=== PATIENT | male | born 1955 | race African-American/Black ===

== ENCOUNTER 2016-07-19 07:00 | Inpatient (IN) ==
[2016-07-20] MEDS ORDERED: LACTULOSE 20 GM/30 ML UDCUP PO PRN (08:09)
[2016-07-20] MEDS ORDERED: TEMAZEPAM 7.5 MG CAPSULE PO PRN (08:09)
[2016-07-20] MEDS ORDERED: guaiFENesin 200 MG/10 ML UDCUP PO PRN (08:09)
[2016-07-20] MEDS ORDERED: PROMETHAZINE 25 MG TABLET PO PRN (08:09)
[2016-07-20] MEDS ORDERED: MAGNESIUM HYDROXIDE SUSP 30 ML UDCUP PO PRN (08:09)
[2016-07-20] MEDS ORDERED: LOPERAMIDE 2 MG CAPSULE PO PRN ×2 (08:09)
[2016-07-20] MEDS ORDERED: traMADol 50 MG TABLET PO PRN (08:09)
[2016-07-20] MEDS ORDERED: diphenhydrAMINE CAP 25 MG CAPSULE PO PRN (08:09)
[2016-07-20] MEDS ORDERED: chlorproMAZINE 25 MG/1 ML AMP IV PRN (08:09)
[2016-07-20] MEDS ORDERED: ACETAMINOPHEN 325 MG TABLET PO PRN (08:09)
[2016-07-20] MEDS ORDERED: ALUMINUM/MAGNES/SIMETH MAX STR 30 ML UDCUP PO PRN (08:09)
[2016-07-20] MEDS ORDERED: BENZTROPINE 2 MG/2 ML AMP IV PRN (08:09)
[2016-07-20] MEDS ORDERED: ALPRAZolam 0.25 MG TABLET PO PRN (08:09)
[2016-07-20] MEDS ORDERED: MYLANTA/LIDO VISC 2:1 300 ML BOTTLE SWISH/SWAL PRN ×2 (08:09)
--- NOTE | 2016-07-20 08:20 | Oncology Progress Note ---
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 This was a T4 N2 M1 esophageal cancer with extensive mediastinal involvement and liver invasion. He has had one course of chemotherapy using cis-[place] 120 mg IV day 1 followed by 5-FU 1200 mg IV days 1 through 4. This was started June 21. The patient had a PEG tube placed because of severe and total inability to swallow. He is swallowing some liquids now but still is unable to swallow semi- solids or thick liquids much less solid food. When I saw him in my office I calculated his body surface area to be 1.58 m. He is having pain that radiates to the left side of his back in the lower thoracic and upper lumbar area that I suspect is related to his invasive cancer. ROS Gen.: Positive for decreased appetite, chills, decreased activity, generalized weakness, irritability and weight loss. Eyes: No history of chronic disease, infections or visual loss. ENT: Positive for dysphagia, lump in throat, sinusitis and taste change. No history of chronic infections, epistaxis, chronic sore throat Lungs: No history of asthma, emphysema, hemoptysis, chronic pleurisy or long- term or chronic infections Cardiovascular: He has chest pain but it is of noncardiac nature. No history of angina, coronary artery disease, congestive heart failure, cardiovascular surgery or DVT/VTE GI: Positive for abdominal pain, bloating, change in appetite, change in bowel habits, constipation, decreased appetite, dysphagia, heartburn, nausea, odynophagia and reflux and also for regurgitation of food. No history of lower GI bleeding, melena, gallbladder disease or pancreatic disease. : Positive for icteric urine and back pain. No history of kidney stones, chronic kidney infections or hematuria. Musculoskeletal: Positive for back pain, bone and joint aches and pains, muscle weakness and neck stiffness. Negative for rheumatologic disease Neurologic: Positive for headaches and loss of consciousness. No history of seizures, convulsions or paralysis. Psychiatric: No history of chronic psychiatric illness or psychiatric medications. Lymphatic: No history of significant or long-term lymphadenopathy Hematologic: No history of anemia, bleeding disorders or blood dyscrasias, bleeding diathesis or long-term elevation or depression white cell count or petechiae. Skin: No history of chronic skin infections or rashes or significant skin lesions. Physical examination: General: The patient is chronically ill-appearing, emaciated and cachectic. Eyes: Lids and conjunctivae are normal. ENT: His teeth are in poor repair and many are missing. His oral mucosa and pharynx are normal. His hearing is normal. His trachea is midline and he has no neck masses. Lungs: Breath sounds are slightly coarse throughout without rubs, rales or rhonchi. His chest moves symmetrically with respiration. Cardiovascular: His heart rhythm is regular without murmur, gallop or rub. There is no jugular venous distention, clubbing, cyanosis or edema. Abdomen: He has a PEG tube in place. There is no ascites and I palpate no definite masses but he is modestly tender throughout the abdomen. Musculoskeletal: He has no focal muscle atrophy or bone or joint deformity but he has generalized muscle wasting and is weak. Neurologic: Cranial nerves II through XII are intact. There are no focal neurologic deficits. Nodes: There is no submandibular, cervical, supraclavicular or axillary adenopathy. Skin: Skin turgor is poor. I see no obvious masses or lesions. Impression: The patient is admitted for institution of course #2 of chemotherapy and for monitoring for toxicity. 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 Specialty Discharge - Follow Up or Referrals - Discharge Medications No Action Omeprazole [Prilosec] 20 mg PO DAILY Naproxen Sodium [Aleve] 220 mg PO QOTHER DAY PRN PRN Reason: Pain
[2016-07-20] MEDS ORDERED: DEXAMETHASONE 10 MG/1 ML VIAL IV SCH (09:00)
[2016-07-20] MEDS ORDERED: NAPROXEN 250 MG TABLET PO PRN (09:11)
--- NOTE | 2016-07-20 09:18 | XRay Report ---
XR chest 2V Indication: Esophageal cancer Comparison: 14 June 2016 Findings: The heart and mediastinum are normal in size and configuration. The pulmonary vascularity is normal in caliber. No lung infiltrates, effusions, pneumothorax or other abnormality is demonstrated. Impression: No acute cardiopulmonary disease. PROCEDURE INTERPRETED AT [facility] DEPARTMENT OF RADIOLOGY Final Report Signed by: Dr. Fausto Harmon
[2016-07-20 09:21] LABS: Basophils % 0.1 % (0.0-0.8); Eosinophils % 0.5 % (0.00-10.9); Hematocrit 24.7 VOL% (42.0-52.0); Hemoglobin 8.3 GM/DL (14.0-18.0); Immature Granulocytes % 0.5 %; Immature Granulocytes Absolute 0.04 #; Lymphocytes # 1.6 10*3/uL (1.4-4.0); Lymphocytes % 21.4 % (21.2-54.2); Mean Corpuscular HGB Conc 33.6 GM/DL (32-36); Mean Corpuscular Hemoglobin 30 PG (27-34); Mean Corpuscular Volume 87.9 FL (87-102); Mean Platelet Volume 9.2 FL (9.6-12.0); Monocytes # 0.5 10*3/uL (0.11-0.8); Neutrophils # 5.3 10*3/uL (1.4-7.4); Neutrophils % 70.5 % (38.7-73.9); Platelet Count 236 10*3/uL (130-400); Red Blood Count 2.81 10*6/uL (3.8-5.5); Red Cell Distribution Width 13.3 % (9.3-17.3); White Blood Count 7.5 10*3/uL (4.5-13.71)
[2016-07-20] MEDS ORDERED: PANTOPRAZOLE 40 MG TABLET PO SCH (09:30)
[2016-07-20 09:49] LABS: Alanine Aminotransferase < 9 U/L (16-61); Albumin 3.3 G/DL (3.4-5.0); Alkaline Phosphatase 77 U/L (45-117); Aspartate Amino Transferase 9 U/L (0-37); Blood Urea Nitrogen 21 MG/DL (7-18); Calcium 9.5 MG/DL (8.5-10.1); Glucose 86 MG/DL (74-106); Osmolality,Calculated 274.8 MOS/KG (273-304); Potassium 4.6 MMOL/L (3.5-5.1); Sodium 137 MMOL/L (136-145); Total Protein 7.2 G/DL (6.4-8.3)
[2016-07-20] MEDS ORDERED: DOCETAXEL IV ONE ×2 (10:00→17:00)
[2016-07-20] MEDS ORDERED: SODIUM CHLORIDE 0.9% IV ONE ×4 (10:00→17:00)
[2016-07-20] MEDS ORDERED: CISPLATIN IV ONE ×2 (11:00→17:00)
[2016-07-20 11:35] LABS: Cancer Antigen 19-9 46.8 U/ML (0-37); Carcinoembryonic Antigen 3.9 NG/ML (0.0-5.0)
[2016-07-20] MEDS: FLUOROURACIL 1,500 MG in SODIUM CHLORIDE 0.9% 1,000 ML IV SCH (11:36)
[2016-07-20] MEDS: GRANISETRON 1 MG/1 ML VIAL IV SCH (11:36)
--- NOTE | 2016-07-20 13:30 | Event Note ---
Archie De La O has been requested for stage IV esophageal cancer. I discussed the procedure and risks in detail and offered to do the procedure today. I discussed the risks including infection bleeding blood clots, pneumothorax, etc. He understands these risks and is not willing to consent to a Mediport at this time. He wants to think about it for a while. If he changes his mind about surgery with him and put him on the schedule for in the morning
[2016-07-21] MEDS ORDERED: PANTOPRAZOLE 40 MG TABLET PO ONE (06:00)
[2016-07-21 06:26] LABS: Calcium 8.5 MG/DL (8.5-10.1); Magnesium 1.6 MG/DL (1.8-2.4); Osmolality,Calculated 272.1 MOS/KG (273-304); Potassium 4.8 MMOL/L (3.5-5.1); Prealbumin 19.3 MG/DL (20-40)
--- NOTE | 2016-07-21 08:02 | Oncology Progress Note ---
Oncology Subjective PN Interval history: Mr. 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 We are monitoring for toxicity. He has evidently had at least a slight response to chemotherapy initially. His inability to swallow has improved slightly. I added Taxotere to his chemotherapy regimen which already included 5-FU and cis-[place]. The dose of the [place] was 120 mg and it was given July 20. The dose of Taxotere was 100 mg and it was given July 20. The patient still on 5-FU by continuous 24-hour infusion and I am considering a reduction in the dose to 72 hours total because a more prolonged infusion may add to the toxicity. He is anemic. I will consider transfusing him before discharge. He is having a Mediport catheter placed today. He tells me that he is having no increase in nausea or vomiting. He does have regurgitation of certain food products but it is because he has esophageal narrowing. He continues to tolerate chemotherapy well. I am going to check a CBC again tomorrow and possibly transfuse. Exam - Constitutional Vitals: Period Temp Pulse Resp BP Sys/[place] Pulse Ox Last 24 Hr 97.0 F-97.9 F 78-97 16-20 96-118/44-64 97-100 Results - Labs CBC & BMP: 07/20/16 09:00 07/21/16 05:32 Specialty Discharge - Follow Up or Referrals - Discharge Medications No Action Omeprazole [Prilosec] 20 mg PO DAILY Naproxen Sodium [Aleve] 220 mg PO QOTHER DAY PRN PRN Reason: Pain HYDROcodone/ACETAMIN 10-325 [[place] 10-325] 10 mg PO Q6HR PRN PRN Reason: Pain Promethazine Tab [Phenergan Tab] 25 mg PO Q6H PRN PRN Reason: Nausea
[2016-07-21] MEDS ORDERED: PANTOPRAZOLE 20 MG TABLET PO SCH (09:00)
[2016-07-21] MEDS: GRANISETRON 1 MG/1 ML VIAL IV SCH (09:38)
[2016-07-21] MEDS ORDERED: HEPARIN 5,000 UNIT/1 ML VIAL ONE (09:40)
[2016-07-21] MEDS ORDERED: LIDOCAINE 1%/EPI INJ 20 ML VIAL ONE (09:40)
[2016-07-21] MEDS ORDERED: BUPIVACAINE MPF 0.25% /EPI 30 ML VIAL ONE (09:40)
[2016-07-21] MEDS ORDERED: ONDANSETRON 4 MG/2 ML VIAL ONE (10:00)
[2016-07-21] MEDS ORDERED: PHENYLEPHRINE 1 MG/10 ML SYRINGE IV ONE (10:00)
[2016-07-21] MEDS ORDERED: LIDOCAINE 1% 5 ML VIAL ONE (10:00)
[2016-07-21] MEDS ORDERED: PROPOFOL 200 MG/20 ML VIAL IV ONE (10:00)
[2016-07-21] MEDS ORDERED: TISSUE ADHESIVE 1 EACH APPLICATOR TOP ONE (11:00)
--- NOTE | 2016-07-21 11:08 | Operative Note ---
Date of procedure: 07/21/16 Pre-op diagnosis: esophageal cancer Post-op diagnosis: same Procedure: PowerPort placement right subclavian vein under fluoroscopic guidance using cutdown technique Findings and technique: After informed consent was obtained the patient was brought the operating room and placed in spine position. After IV sedation was administered the patient's neck and chest was prepped and draped in usual sterile fashion. Local anesthesia was infiltrated and a transverse incision made beneath the right clavicle over the deltopectoral groove. Sharp dissection was carried down into the deltopectoral groove where multiple vein branches were identified and the largest of these was encircled with silk tie and a small transverse venotomy made. The catheter was directly introduced and advanced into the central venous circulation under fluoroscopy and positioned with the tip in the mid distal superior vena cava under fluoroscopy. The catheter was attached to the PowerPort and secured in place with Vicryl suture and easily accessed aspirated and flushed. Fluoroscopy was once again used to check good positioning. Incision was closed with a deep layer of interrupted 3- 0 Vicryl subcutaneous suture and skin with running 4 Vicryl subcutaneous suture and sure close tissue adhesive. Anesthesia: MAC, local Surgeon / Physician: Samuel Tam III. Estimated blood loss: none Specimens: none sent Condition: stable Disposition: PACU Results - Labs CBC & BMP: 07/20/16 09:00 07/21/16 05:32 Discharge Plan - Discharge Medications No Action Omeprazole [Prilosec] 20 mg PO DAILY Naproxen Sodium [Aleve] 220 mg PO QOTHER DAY PRN PRN Reason: Pain HYDROcodone/ACETAMIN 10-325 [[place] 10-325] 10 mg PO Q6HR PRN PRN Reason: Pain Promethazine Tab [Phenergan Tab] 25 mg PO Q6H PRN PRN Reason: Nausea - Follow Up or Referral - Forms/Instructions
[2016-07-21] MEDS ORDERED: LACTATED RINGERS 1,000 ML IV ONE (11:14)
[2016-07-21] MEDS ORDERED: fentaNYL 100 MCG/2 ML VIAL ONE (11:14)
[2016-07-21] MEDS ORDERED: MIDAZOLAM 2 MG/2 ML VIAL ONE (11:14)
--- NOTE | 2016-07-21 12:18 | Anesthesia ---
Anesthesia Post OP - Post Ansesthetic Evaluation Patient seen in post op: Yes Resp: within normal limits CV: within normal limits Mental: within normal limits Temp: within normal limits Bnow-Qs-Noqbulaej: within normal limits Nausea and Vomiting: within normal limits Pain: within normal limits
[2016-07-21] MEDS: ONDANSETRON 4 MG/2 ML VIAL IV PRN (19:30)
[2016-07-21] MEDS: FLUOROURACIL 1,500 MG in SODIUM CHLORIDE 0.9% 1,000 ML IV SCH (22:47)
[2016-07-22 00:25] LABS: Apearance,Urine CLEAR (Clear); Bilirubin,Urine Negative (Negative); Blood, Urine Negative (Negative); Glucose,Urine (UA) Negative (Negative); Ketones,Urine Negative (Negative); Nitrite,Urine Negative (Negative); Protein,Urine Negative; RBC,Urine 2 /HPF (0-4); Squamous Epithelial Cell,Urine Occasional /HPF (0-10); Urine Color Yellow (Yellow); Urine Specific Gravity 1.016 (1.001-1.035); WBC,Urine 1 /HPF (0-6)
[2016-07-22 05:32] LABS: Basophils % 0.1 % (0.0-0.8); Eosinophils % 0.1 % (0.00-10.9); Hematocrit 23.8 VOL% (42.0-52.0); Hemoglobin 8.2 GM/DL (14.0-18.0); Immature Granulocytes % 0.4 %; Immature Granulocytes Absolute 0.03 #; Lymphocytes # 0.7 10*3/uL (1.4-4.0); Lymphocytes % 9.7 % (21.2-54.2); Mean Corpuscular HGB Conc 34.5 GM/DL (32-36); Mean Corpuscular Hemoglobin 30 PG (27-34); Mean Corpuscular Volume 86.9 FL (87-102); Mean Platelet Volume 9.8 FL (9.6-12.0); Monocytes # 0.2 10*3/uL (0.11-0.8); Monocytes % 3.3 % (1.7-12.7); Neutrophils # 6.3 10*3/uL (1.4-7.4); Neutrophils % 86.4 % (38.7-73.9); Platelet Count 219 10*3/uL (130-400); Red Blood Count 2.74 10*6/uL (3.8-5.5); Red Cell Distribution Width 13.2 % (9.3-17.3); White Blood Count 7.3 10*3/uL (4.5-13.71)
[2016-07-22 06:09] LABS: Albumin 2.3 G/DL (3.4-5.0); Bilirubin,Total 0.5 MG/DL (0.2-1.0); Calcium 8.1 MG/DL (8.5-10.1)
[2016-07-22 06:10] LABS: Osmolality,Calculated 276.5 MOS/KG (273-304); Potassium 4.2 MMOL/L (3.5-5.1)
[2016-07-22] MEDS ORDERED: SODIUM CHLORIDE 0.9% 250 ML IV PRN (08:43)
--- NOTE | 2016-07-22 08:43 | Oncology Progress Note ---
Oncology Subjective PN Interval history: Mr. Cowan will begin day #3 of a 72 hour infusion of 5-fluorouracil today. He has squamous cell carcinoma of the esophagus and he has already received [place] and Taxotere earlier during the stay. He still tolerating chemotherapy well. He has had no nausea or vomiting. He has had no fever or chills. He has had no mouth or throat pain. His dysphagia is improving. His oral mucosa is normal. He is oriented 3. He is emaciated and cachectic but in no acute distress. His respirations are normal. Cranial nerves II through XII are intact. He has no focal neurologic deficits. We will continue chemotherapy and anticipate discharge tomorrow after blood transfusion. Exam - Constitutional Vitals: Period Temp Pulse Resp BP Sys/[place] Pulse Ox Last 24 Hr 97.1 F-98.7 F 61-100 12-20 96-144/54-79 94-100 Results - Labs CBC & BMP: 07/22/16 04:00 07/22/16 04:00 Quality Measures - VTE Contraindication to Pharmacological VTE Prophylaxis: High Risk of Bleeding Specialty Discharge - Follow Up or Referrals - Discharge Medications No Action Omeprazole [Prilosec] 20 mg PO DAILY Naproxen Sodium [Aleve] 220 mg PO QOTHER DAY PRN PRN Reason: Pain HYDROcodone/ACETAMIN 10-325 [[place] 10-325] 10 mg PO Q6HR PRN PRN Reason: Pain Promethazine Tab [Phenergan Tab] 25 mg PO Q6H PRN PRN Reason: Nausea
[2016-07-22] MEDS: GRANISETRON 1 MG/1 ML VIAL IV SCH (08:56)
[2016-07-22] MEDS: PANTOPRAZOLE 40 MG TABLET PO SCH (08:59)
[2016-07-22] MEDS: ONDANSETRON 4 MG/2 ML VIAL IV PRN (17:13)
[2016-07-22] MEDS: FLUOROURACIL 1,500 MG in SODIUM CHLORIDE 0.9% 1,000 ML IV SCH (21:17)
[2016-07-23] MEDS: GRANISETRON 1 MG/1 ML VIAL IV SCH (08:56)
[2016-07-23] MEDS: PANTOPRAZOLE 40 MG TABLET PO SCH (08:56)
--- NOTE | 2016-07-23 11:38 | Oncology Progress Note ---
Oncology Subjective PN Interval history: Mr. Cowan has esophageal cancer. I have decided to reduce the length of his 5 -FU infusion to 3 days. This means he will be completing it late tonight. We will transfuse 2 units of packed red cells because of anemia tonight. I will plan on discharging him tomorrow. His dysphagia is gradually improving. He has no mouth or throat irritation or soreness. He is fully oriented and alert. He is in no acute distress. His lungs are clear and his heart sounds are normal. Cranial nerves II through XII are intact. We are continuing chemotherapy and monitoring for toxicity. We will also transfusing packed red cells for anemia related to the esophageal cancer. Exam - Constitutional Vitals: Period Temp Pulse Resp BP Sys/[place] Pulse Ox Last 24 Hr 97.2 F-98.2 F 63-85 18-20 104-133/61-77 98-100 Results - Labs CBC & BMP: 07/22/16 04:00 07/22/16 04:00 Quality Measures - VTE Contraindication to Pharmacological VTE Prophylaxis: High Risk of Bleeding Specialty Discharge - Follow Up or Referrals - Discharge Medications No Action Omeprazole [Prilosec] 20 mg PO DAILY Naproxen Sodium [Aleve] 220 mg PO QOTHER DAY PRN PRN Reason: Pain HYDROcodone/ACETAMIN 10-325 [[place] 10-325] 10 mg PO Q6HR PRN PRN Reason: Pain Promethazine Tab [Phenergan Tab] 25 mg PO Q6H PRN PRN Reason: Nausea
[2016-07-23] MEDS: ONDANSETRON 4 MG/2 ML VIAL IV PRN (21:24)
[2016-07-24] MEDS: GRANISETRON 1 MG/1 ML VIAL IV SCH (10:01)
[2016-07-24] MEDS: PANTOPRAZOLE 40 MG TABLET PO SCH (10:01)
[2016-07-24 12:07] LABS: Eosinophils % 0.3 % (0.00-10.9); Hematocrit 30.2 VOL% (42.0-52.0)
[2016-07-24 12:12] LABS: Basophils % 0.2 % (0.0-0.8); Immature Granulocytes % 0.7 %; Immature Granulocytes Absolute 0.07 #; Lymphocytes # 0.6 10*3/uL (1.4-4.0); Lymphocytes % 5.2 % (21.2-54.2); Mean Corpuscular HGB Conc 34.1 GM/DL (32-36); Mean Corpuscular Hemoglobin 29 PG (27-34); Mean Corpuscular Volume 85.6 FL (87-102); Mean Platelet Volume 9.1 FL (9.6-12.0); Monocytes # 0.1 10*3/uL (0.11-0.8); Monocytes % 0.6 % (1.7-12.7); Platelet Count 230 10*3/uL (130-400); Red Cell Distribution Width 13.7 % (9.3-17.3)
[2016-07-24 12:14] LABS: Red Blood Count 3.53 10*6/uL (3.8-5.5); White Blood Count 10.8 10*3/uL (4.5-13.71)
[2016-07-24 12:15] LABS: Hemoglobin 10.3 GM/DL (14.0-18.0)
[2016-07-24 12:31] LABS: Lymphocytes 2 % (20-55); Segmented Neutrophils 97 % (50-85); Total Cells Counted 100
[2016-07-24 12:32] LABS: Hypochromasia 1+; Microcytosis Slight; Platelet Estimate Adequate
--- NOTE | 2016-07-24 13:03 | Discharge Summary ---
Hospital Course - Hospital Course Hospital Course: Diagnoses: Administration of chemotherapy and monitoring for toxicity Metastatic squamous cell carcinoma of the esophagus with liver metastasis Anemia of chronic disease requiring blood transfusion Malnutrition with emaciation Summary: This 60-year-old man was admitted for his second course of palliative chemotherapy for metastatic squamous cell carcinoma of the esophagus. He was emaciated and malnourished on admission. He has been having PEG tube feedings and tolerating them only fairly well. However, his dysphagia is improving and I am hoping that with the second course of chemotherapy there will be further improvement and this will result in any improvement in his nutritional status. On this admission his hemoglobin was low. It was 8.3 and we eventually transfused packed red cells while he was here. He also received chemotherapy that consisted of: cis-[place] was 120 mg and it was given July 20. Taxotere was 100 mg and it was given July 20. 5-fluorouracil 1500 mg IV over 24 hours daily for 3 days. This was a day shorter than his last previous chemotherapy but I have added the Taxotere. He was transfused with 2 units of packed red cells during his hospital stay as well. He actually tolerated the chemotherapy surprisingly well without nausea, vomiting, stomatitis or diarrhea. He will be discharged today and scheduled for readmission for August 15, 2015. My plan is to continue his current home medications. I will check a CBC, CMP and LDH on the patient on the day of admission and actually get it prior to admitting the patient and then I will make a decision about course #3 of chemotherapy. - Time spent with patient Time with patient DS: Greater than 30 minutes Specialty Discharge - Follow Up or Referrals - Discharge Medications No Action Omeprazole [Prilosec] 20 mg PO DAILY Naproxen Sodium [Aleve] 220 mg PO QOTHER DAY PRN PRN Reason: Pain HYDROcodone/ACETAMIN 10-325 [[place] 10-325] 10 mg PO Q6HR PRN PRN Reason: Pain Promethazine Tab [Phenergan Tab] 25 mg PO Q6H PRN PRN Reason: Nausea Discharge Plan - Discharge Data Condition at Discharge: Guarded Discharge Diet: advance to your usual diet Activity: resume usual activities as tolerated Hygiene: no restrictions Weight Bearing at Discharge: weight bear as tolerated Driving: other Contact your physician if you experience:: fever over 101, Difficulty voiding, Redness or swelling, Nausea/Vomiting, Shortness of breath, Bleeding, pain uncontrolled by pain medications - Discharge Medications Continue Omeprazole [Prilosec] 20 mg PO DAILY Naproxen Sodium [Aleve] 220 mg PO QOTHER DAY PRN PRN Reason: Pain HYDROcodone/ACETAMIN 10-325 [[place] 10-325] 10 mg PO Q6HR PRN PRN Reason: Pain Promethazine Tab [Phenergan Tab] 25 mg PO Q6H PRN PRN Reason: Nausea - Follow Up or Referral - Forms/Instructions Additional Discharge Instructions: Discharge today. Have the patient return August 15, 2016 and check a CBC. If it is acceptable, admitted him as a regular admission with routine admission orders and ask me about chemotherapy with Taxotere, Platinol and 5-FU. Instructed patient to continue his usual home medications. Instruct him to come to the emergency room if he develops shaking chills or fever or any abrupt weakness or prostration. Exam - Constitutional Vitals: Period Temp Pulse Resp BP Sys/[place] Pulse Ox Last 24 Hr 97.1 F-98.9 F 66-92 18-20 116-152/62-78 94-100 Discharge Results Labs on day of discharge: Labs from last 24 hours 07/24/16 07/23/16 12:00 04:00 WBC 10.8 D RBC 3.53 L D Hgb 10.3 L D Hct 30.2 L MCV 85.6 L MCH 29 MCHC 34.1 RDW 13.7 Plt Count 230 MPV 9.1 L Neut % (Auto) 93.0 H Lymph % (Auto) 5.2 L [place] % (Auto) 0.6 L Eos % (Auto) 0.3 Baso % (Auto) 0.2 Neut # (Auto) 10.0 H Lymph # (Auto) 0.6 L [place] # (Auto) 0.1 L Eos # (Auto) 0.0 Baso # (Auto) 0.0 Total Counted 100 Immature Gran % 0.7 Nucleated RBC % 0.0 Immature Gran # 0.07 Segmented Neutrophils 97 H Lymphocytes 2 L Monocytes 1 L Nucleated RBCs # 0.00 Platelet Estimate Adequate Hypochromasia 1+ Microcytosis Slight Blood Type A POSITIVE Antibody Screen Negative Crossmatch See Detail DS: Provider Date of admission: 07/20/16 07:26 Primary care physician: . No PCP Attending physician on admission: Rm Jackson MD Consults: 07/20/16 08:57 Consult to Physician [CONS] Routine Comment: mediport placement Consulting Provider: Samuel Tam III. Consulting Provider Notified: Yes When should Consulting Provider be notified: Now Consult to Specialist Group: Surgery When should Consulting Provider be notified: Now Person Notified: KRANTHI Date Notified: 07/20/16 Time Notified: 09:04 07/20/16 09:37 Consult to Dietitian [CONS] Routine Reason for Dietitian: Other Consult Comment: has tube feedings, has lost weight Discharging clinician: Rm Jackson MD
[2016-07-24] MEDS ORDERED: HEPARIN LOCK FLUSH 500 UNIT/5 ML SYRINGE IV ONE (15:29)
[2016-07-24 18:26] VITALS: BP 120/77
== END 2016-07-24 17:55 | disposition home or self-care, planned readmission (81) | DRG 693 ==
LOC: EDBD → N.4E 07-20 07:26
PROVIDERS: ADMIT Specialist; ATTEND Specialist

== ENCOUNTER 2016-08-15 07:30 | Inpatient (IN) ==
--- NOTE | 2016-08-15 08:20 | Oncology History&Physical ---
History of Present Illness Chief complaint: Administration of chemotherapy and monitoring of toxicity. Esophageal canc History of present illness: The second course of chemotherapy will include Taxotere 100 mg IV day 1, cis- [place] 120 mg IV day 1 and 5-FU 1200 mg IV over 22 hours daily 4 days. Mr. Cowan is a 60 year old male who was found to have a mid esophageal mass. 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 The pathology specimen was [id number]. The patient had originally presented with vomiting and nausea of about a month' s duration without abdominal pain, diarrhea or constipation. The patient is cachectic. 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 CT scan demonstrated mediastinal involvement with relatively bulky disease and also suggested liver invasion directly by the tumor. The patient has a PEG tube in place and is receiving PEG tube feedings but he also is able to take some soft foods. His appetite actually continues to improve. This patient was started on chemotherapy on June 21 and received cisplatin 120mg. on that day followed by 5-FU 1200mg. daily for 4 days that he is continuing to receive a continuous 24-hour infusion. Taxotere will be added to his second course of chemotherapy. Past medical history: No known allergies. Current medications: Naproxen, and omeprazole. Social history: He smokes on a daily basis. He occasionally drinks alcohol. Family history: Is negative for any malignancies ROS Gen.: Positive for progressive weight loss Eyes: No history of chronic disease, infections or visual loss. ENT: No history of chronic infections, epistaxis, chronic sore throat Lungs: No history of asthma, emphysema, hemoptysis, chronic pleurisy or long- term or chronic infections Cardiovascular: No history of angina, coronary artery disease, congestive heart failure, cardiovascular surgery or DVT/VTE GI: Positive for dysphagia and regurgitation no history of upper or lower GI bleeding, melena, dysphagia, odynophagia, liver disease, gallbladder disease or pancreatic disease. : No history of kidney stones, chronic kidney infections or hematuria. Musculoskeletal: No history of chronic bone or joint pain or focal muscle atrophy or bone or joint deformity. Neurologic: No history of seizures, convulsions or paralysis. Psychiatric: No history of chronic psychiatric illness or psychiatric medications. Lymphatic: No history of significant or long-term lymphadenopathy Hematologic: He reports easy bruising and easy bleeding. Skin: No history of chronic skin infections or rashes or significant skin lesions. Physical examination: General: The patient is thin to the point of being cachectic but active. He does appear somewhat chronically ill. Eyes: Normal lids and conjunctivae. ENT: His breath has a foul odor. His oral mucosa and pharynx are normal. His teeth are in poor repair. His trachea is midline and he has no neck masses. Hearing is normal. Lungs: Slightly coarse breath sounds without rubs, rales or rhonchi. The chest moves symmetrically with respiration. Cardiovascular: His heart rhythm is regular without murmur, gallop or rub. There is no jugular venous distention, clubbing or cyanosis. Abdomen: He has a PEG tube in place. He is tender from the recent PEG tube placement. There is no ascites or distention and no distinct mass or organomegaly. Musculoskeletal: There is no focal muscle atrophy or bone or joint deformity. Neurologic: Cranial nerves II through XII are intact. No focal neurologic deficits. Nodes: There is no submandibular, cervical, supraclavicular or axillary adenopathy. Psychiatric: He is oriented to time, place, person and situation. Skin: No significant rashes or lesions. He does have a Mediport catheter in place just below the right mid clavicle. Impression: Patient admitted for administration of chemotherapy and monitoring for toxicity for squamous cell carcinoma of the esophagus. Documented mediastinal involvement and also documented liver invasion by the tumor. Emaciation, cachexia and malnutrition Anemia of chronic disease, chemotherapy and probably some component of GI blood loss See admission orders Home Medications Medication Instructions Recorded Confirmed Type Naproxen Sodium [Aleve] 220 mg PO QOTHER DAY PRN 06/10/16 07/20/16 History Omeprazole [Prilosec] 20 mg PO DAILY 06/10/16 07/20/16 History HYDROcodone/ACETAMIN 10-325 [[place] 10 mg PO Q6HR PRN 07/20/16 07/20/16 History 10-325] Promethazine Tab [Phenergan Tab] 25 mg PO Q6H PRN 07/20/16 07/20/16 History Allergies Allergy/AdvReac Type Severity Reaction Status Date / Time No Known Allergies Allergy Verified 06/10/16 08:08 Medical,Surgical,& Family Hx - Medical History Psychological: No history of: Anxiety Disorders, ADHD, Behavior Problems, Bipolar Disorder, Depression, Previous Suicide Attempt, Psychiatric/Substance Abuse Tx, Schizophrenia, Violent Behavior, Psychiatric Problems Neurology: No history of: Seizures HEENT: History of: Eye Problem (weeping both eyes) No history of: Dental Problems (missing teeth/fell out) Endocrine: No history of: Adrenal Disease, Diabetes Mellitus (IDDM), Diabetes Mellitus ( NIDDM), Thyroid Disorder, Endocrine Cancer, Endocrine Problems Rheumatology: No history of;: Psoriasis, Sjogrens, Systemic Lupus Erythematosus Respiratory: History of: Respiratory Problems (trouble breathing sometimes) Renal: No history of: Renal (Kidney) Cancer, Dialysis, Renal Failure, Renal Problems Genitourinary: No history of: Bladder Problem, Kidney Stones, Prostate Problems, Recurring Urinary Tract Infections, Genitourinary Cancer, Problems Gastrointestinal: History of: GERD (current) Musculoskeletal: No history of: Amputation, Back/Neck Problems, Musculoskeletal Problems ( sore back) Hematology: No history of: Anemia, Blood Transfusion Reaction, Bleeding Problems, Clotting Problems, Sickle Cell Disease, Hematologic Cancer, Blood Disorders Reproductive: No histroy: Penile Disorder, Sexually Transmitted Disease, Reproductive Cancer, Reproductive Problems Other: No history of: Anesthesia Reactions, Anaphylaxis, Cancer, Eczema, HIV, Malignant Hyperthermia, MRSA, Vancomycin-Resistant Enterococci, Skin Problems, Miscellaneous Medical Problems - Surgical History Thoracic Surgeries: Patient denies;: Kidney (Renal Surgery), Lithotripsy, Nephrectomy, Organ Transplant HEENT Surgeries: Patient denies: Eye Surgery, Thyroid Surgery, Tonsilectomy & Adenoidectomy Abdominal Surgeries: Patient denies: Abdominal Surgery, Appendectomy, Cholecystectomy, Colonoscopy , Gastric Bypass Surgery, EGD, Hernia Repair Reproductive Surgeries: Patient denies;: Breast Surgery, Cystoscopy, Genitourinary Surgery, Prostate Surgery, Vasectomy Orthopedic Surgeries: Patient denies;: Implanted Devices, Orthopedic Surgery, Spinal Surgery, Total Hip Replacement, Total Knee Replacement - Family History Family History: Denies;: Family Anesthesia Reaction, Family Cancer, Family Diabetes, Family Heart Disease, Family Hypertension, Family Psychiatric Problems, Family Stroke - Social History Smoking Status: Current every day smoker
[2016-08-15] MEDS ORDERED: BENZTROPINE 2 MG/2 ML AMP IV PRN (08:54)
[2016-08-15] MEDS ORDERED: TEMAZEPAM 7.5 MG CAPSULE PO PRN (08:54)
[2016-08-15] MEDS ORDERED: MAGNESIUM HYDROXIDE SUSP 30 ML UDCUP PO PRN (08:54)
[2016-08-15] MEDS ORDERED: chlorproMAZINE INJ 25 MG in SODIUM CHLORIDE 0.9% 100 ML IV PRN (08:54)
[2016-08-15] MEDS ORDERED: traMADol 50 MG TABLET PO PRN (08:54)
[2016-08-15] MEDS ORDERED: chlorproMAZINE INJ 50 MG in SODIUM CHLORIDE 0.9% 100 ML IV PRN (08:54)
[2016-08-15] MEDS ORDERED: ACETAMINOPHEN 325 MG TABLET PO PRN (08:54)
[2016-08-15] MEDS ORDERED: ALUMINUM/MAGNES/SIMETH MAX STR 30 ML UDCUP PO PRN (08:54)
[2016-08-15] MEDS ORDERED: guaiFENesin 200 MG/10 ML UDCUP PO PRN (08:54)
[2016-08-15] MEDS ORDERED: chlorproMAZINE 25 MG TABLET PO PRN (08:54)
[2016-08-15] MEDS ORDERED: MYLANTA/LIDO VISC 2:1 300 ML BOTTLE SWISH/SPIT PRN (08:54)
[2016-08-15] MEDS ORDERED: MYLANTA/LIDO VISC 2:1 300 ML BOTTLE SWISH/SWAL PRN (08:54)
[2016-08-15] MEDS ORDERED: LOPERAMIDE 2 MG CAPSULE PO PRN ×2 (08:54)
[2016-08-15] MEDS ORDERED: LACTULOSE 20 GM/30 ML UDCUP PO PRN (08:54)
[2016-08-15] MEDS ORDERED: ONDANSETRON 4 MG/2 ML VIAL IV PRN (08:54)
[2016-08-15] MEDS ORDERED: ALPRAZolam 0.25 MG TABLET PO PRN (08:54)
[2016-08-15] MEDS ORDERED: diphenhydrAMINE CAP 25 MG CAPSULE PO PRN (08:54)
[2016-08-15] MEDS ORDERED: PROMETHAZINE INJ 25 MG in SODIUM CHLORIDE 0.9% 50 ML IV PRN (08:54)
[2016-08-15] MEDS ORDERED: NAPROXEN 250 MG TABLET PO PRN (09:00)
[2016-08-15 10:22] LABS: Basophils % 0.2 % (0.0-0.8); Eosinophils # 0.1 10*3/uL (0.0-0.87); Eosinophils % 0.6 % (0.00-10.9); Hematocrit 31.4 VOL% (42.0-52.0); Hemoglobin 10.3 GM/DL (14.0-18.0); Immature Granulocytes % 0.6 %; Immature Granulocytes Absolute 0.06 #; Lymphocytes # 1.5 10*3/uL (1.4-4.0); Lymphocytes % 14.5 % (21.2-54.2); Mean Corpuscular HGB Conc 32.8 GM/DL (32-36); Mean Corpuscular Hemoglobin 30 PG (27-34); Mean Corpuscular Volume 91.8 FL (87-102); Mean Platelet Volume 8.7 FL (9.6-12.0); Monocytes # 0.6 10*3/uL (0.11-0.8); Monocytes % 5.7 % (1.7-12.7); Neutrophils % 78.4 % (38.7-73.9); Platelet Count 319 10*3/uL (130-400); Red Blood Count 3.42 10*6/uL (3.8-5.5); Red Cell Distribution Width 15.2 % (9.3-17.3); White Blood Count 10.2 10*3/uL (4.5-13.71)
[2016-08-15 10:56] LABS: Albumin 3.6 G/DL (3.4-5.0); Bilirubin,Total 0.5 MG/DL (0.2-1.0); Calcium 8.8 MG/DL (8.5-10.1); Magnesium 1.6 MG/DL (1.8-2.4); Osmolality,Calculated 287.7 MOS/KG (273-304); Total Protein 7.5 G/DL (6.4-8.3); Uric Acid 3.8 MG/DL (3.5-7.2)
[2016-08-15] MEDS ORDERED: diphenhydrAMINE 50 MG/1 ML VIAL IV ONE (12:30)
[2016-08-15] MEDS ORDERED: SODIUM CHLORIDE 0.9% IV ONE (12:45)
[2016-08-15] MEDS ORDERED: CISPLATIN IV ONE (12:45)
[2016-08-15] MEDS: DEXAMETHASONE 10 MG/1 ML VIAL IV SCH (13:49)
[2016-08-15] MEDS: GRANISETRON 1 MG/1 ML VIAL IV SCH (13:54)
[2016-08-15] MEDS: PANTOPRAZOLE 40 MG TABLET PO SCH (15:00)
[2016-08-15] MEDS: FLUOROURACIL 1,200 MG in SODIUM CHLORIDE 0.9% 1,000 ML IV SCH (18:33)
[2016-08-15] MEDS: PROMETHAZINE 25 MG TABLET PO PRN (21:20)
[2016-08-16 05:11] LABS: Phosphorous 2.6 MG/DL (2.5-4.9); Prealbumin 22.6 MG/DL (20-40)
--- NOTE | 2016-08-16 08:15 | Oncology Progress Note ---
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 He is currently on his second course of palliative chemotherapy and this is day #2 of palliative chemotherapy. He has some mild mouth rawness. He has had no nausea or vomiting. His dietary intake is improving. He is eating grits and eggs this morning. He remains emaciated and cachectic and malnourished. He is 5 feet 6 inches tall and weighs only 113 pounds. I expect this to improve now because I expect him to continue to respond to chemotherapy. His oral mucosa is normal. He is oriented to time, place, person and situation. Cranial nerves II through XII are intact. There are no focal neurologic deficits. He has generalized muscle wasting but no focal bone or joint deformity. Exam - Constitutional Vitals: Period Temp Pulse Resp BP Sys/[place] Pulse Ox Last 24 Hr 97.5 F-98.1 F 55-75 16-71 122-167/60-79 97-98 Results - Labs CBC & BMP: 08/15/16 08:40 08/15/16 08:40
[2016-08-16] MEDS: DEXAMETHASONE 10 MG/1 ML VIAL IV SCH (08:51)
[2016-08-16] MEDS: PANTOPRAZOLE 40 MG TABLET PO SCH (08:51)
[2016-08-16] MEDS: GRANISETRON 1 MG/1 ML VIAL IV SCH (08:52)
[2016-08-16] MEDS: FLUOROURACIL 1,200 MG in SODIUM CHLORIDE 0.9% 1,000 ML IV SCH (16:35)
[2016-08-17] MEDS: PROMETHAZINE 25 MG TABLET PO PRN ×2 (00:08→19:43)
--- NOTE | 2016-08-17 08:16 | Oncology Progress Note ---
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 He has documented liver and mediastinal metastases. He is tolerating palliative chemotherapy well. He has had no nausea or vomiting and no mouth or throat irritation. In fact his consumption of solid food is improving almost on a daily basis. Since this is a squamous cell carcinoma, at some point we will consider whether or not to use Opdivo. We will of course need to have this approved first. This is day 3 of course #2 of chemotherapy. Exam - Constitutional Vitals: Period Temp Pulse Resp BP Sys/[place] Pulse Ox Last 24 Hr 97.5 F-98.7 F 61-80 18-20 134-153/67-76 98-99 Results - Labs CBC & BMP: 08/15/16 08:40 08/15/16 08:40
[2016-08-17] MEDS: GRANISETRON 1 MG/1 ML VIAL IV SCH (09:45)
[2016-08-17] MEDS: DEXAMETHASONE 10 MG/1 ML VIAL IV SCH (09:47)
[2016-08-17] MEDS: PANTOPRAZOLE 40 MG TABLET PO SCH (09:51)
[2016-08-17] MEDS: FLUOROURACIL 1,200 MG in SODIUM CHLORIDE 0.9% 1,000 ML IV SCH (15:05)
--- NOTE | 2016-08-18 08:11 | Oncology Progress Note ---
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 He has documented liver and mediastinal metastases. He is tolerating palliative chemotherapy well. He has had no nausea or vomiting and no mouth or throat irritation. In fact his consumption of solid food is improving almost on a daily basis. Since this is a squamous cell carcinoma, at some point we will consider whether or not to use Opdivo. We will of course need to have this approved first. This is day 4 of course #2 of chemotherapy. This is being administered by continuous 24 hour infusion and it requires observation for toxicity which we are doing. He has mild to moderate nausea without vomiting. His oral mucosa is normal. He is oriented and alert and has no focal neurologic deficits. He has not eaten his breakfast today yet. His respirations are unlabored. He is in a very pleasant mood. He is fully oriented and alert. Exam - Constitutional Vitals: Period Temp Pulse Resp BP Sys/[place] Pulse Ox Last 24 Hr 97.3 F-98.5 F 76-90 18-20 118-142/63-86 97-100 Results - Labs CBC & BMP: 08/15/16 08:40 08/15/16 08:40
[2016-08-18] MEDS: DEXAMETHASONE 10 MG/1 ML VIAL IV SCH (08:15)
[2016-08-18] MEDS: GRANISETRON 1 MG/1 ML VIAL IV SCH (08:18)
[2016-08-18] MEDS: PANTOPRAZOLE 40 MG TABLET PO SCH (08:21)
[2016-08-18] MEDS: FLUOROURACIL 1,200 MG in SODIUM CHLORIDE 0.9% 1,000 ML IV SCH (13:36)
[2016-08-18] MEDS: PROMETHAZINE 25 MG TABLET PO PRN (17:08)
[2016-08-19] MEDS: PROMETHAZINE 25 MG TABLET PO PRN ×2 (04:01→11:16)
[2016-08-19] MEDS: PANTOPRAZOLE 40 MG TABLET PO SCH (08:30)
[2016-08-19 08:40] VITALS: BP 143/75
--- NOTE | 2016-08-19 09:59 | Discharge Summary ---
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 His performance status had actually improved after his first course of chemotherapy. He is taking slightly more solid food at this point. He tolerated the chemotherapy well, having only some mild mouth irritation and loss of appetite. This patient was started on course #2 of chemotherapy on August 15, 2015 and received: cisplatin 120mg. on day #1 Taxotere 100mg. day #1 5-FU 1200mg. daily for 4 days by continuous 24-hour infusion starting August 15. My plan is to return the patient every for his next course. I will check him in the office prior to that time. I anticipate giving 4 courses of this chemotherapy and then reassessing his condition. He may be a candidate ultimately for targeted therapy such as Opdivo. Discharge Plan - Discharge Data Disposition: Disch To Home/Self Care Condition at Discharge: Guarded Discharge Diet: advance to your usual diet Activity: resume usual activities as tolerated Hygiene: no restrictions Weight Bearing at Discharge: weight bear as tolerated Driving: other Contact your physician if you experience:: fever over 101, Difficulty voiding, Redness or swelling, Nausea/Vomiting, Shortness of breath, Bleeding, pain uncontrolled by pain medications - Discharge Medications Continue Omeprazole [Prilosec] 20 mg PO DAILY Naproxen Sodium [Aleve] 220 mg PO QOTHER DAY PRN PRN Reason: Pain HYDROcodone/ACETAMIN 10-325 [[place] 10-325] 10 mg PO Q6HR PRN PRN Reason: Pain Promethazine Tab [Phenergan Tab] 25 mg PO Q6H PRN PRN Reason: Nausea - Follow Up or Referral - Forms/Instructions Additional Discharge Instructions: Discharge when chemotherapy is complete. Return September 12, 2015. Check CBC and draw the remainder of admission lab work. Also obtain a chest x-ray PA and lateral. Use my routine orders and ask me about chemotherapy. Exam - Constitutional Vitals: Period Temp Pulse Resp BP Sys/[place] Pulse Ox Last 24 Hr 96.2 F-98.7 F 67-91 16-20 111-159/64-77 96-100 DS: Provider Date of admission: 08/15/16 08:54 Primary care physician: . No PCP Attending physician on admission: Rm Jackson MD Consults: 08/15/16 09:12 Consult to Pharmacy [CONS] Routine Reason for Pharmacy Consult: Adjust Meds Renal Funct 08/15/16 15:07 Consult to Dietitian [CONS] Routine Reason for Dietitian: TF-Initiate/Manage Consult Comment: has peg Discharging clinician: Rm Jackson MD
[2016-08-19] MEDS ORDERED: HEPARIN LOCK FLUSH 500 UNIT/5 ML SYRINGE IV PRN (12:25)
== END 2016-08-19 13:15 | disposition home or self-care, planned readmission (81) | DRG 693 ==
LOC: EDBD → N.4E 07:31
PROVIDERS: ADMIT Specialist; ATTEND Specialist

== ENCOUNTER 2016-09-12 07:00 | Inpatient (IN) ==
[2016-09-12] MEDS ORDERED: diphenhydrAMINE CAP 25 MG CAPSULE PO PRN (07:36)
[2016-09-12] MEDS ORDERED: MAGNESIUM HYDROXIDE SUSP 30 ML UDCUP PO PRN (07:36)
[2016-09-12] MEDS ORDERED: PROMETHAZINE INJ 25 MG in SODIUM CHLORIDE 0.9% 50 ML IV PRN (07:36)
[2016-09-12] MEDS ORDERED: MYLANTA/LIDO VISC 2:1 300 ML BOTTLE SWISH/SWAL PRN (07:36)
[2016-09-12] MEDS ORDERED: ACETAMINOPHEN 325 MG TABLET PO PRN (07:36)
[2016-09-12] MEDS ORDERED: TEMAZEPAM 7.5 MG CAPSULE PO PRN (07:36)
[2016-09-12] MEDS ORDERED: chlorproMAZINE INJ 25 MG in SODIUM CHLORIDE 0.9% 100 ML IV PRN (07:36)
[2016-09-12] MEDS ORDERED: chlorproMAZINE 25 MG TABLET PO PRN (07:36)
[2016-09-12] MEDS ORDERED: guaiFENesin 200 MG/10 ML UDCUP PO PRN (07:36)
[2016-09-12] MEDS ORDERED: ALPRAZolam 0.25 MG TABLET PO PRN (07:36)
[2016-09-12] MEDS ORDERED: LOPERAMIDE 2 MG CAPSULE PO PRN ×2 (07:36)
[2016-09-12] MEDS ORDERED: MYLANTA/LIDO VISC 2:1 300 ML BOTTLE SWISH/SPIT PRN (07:36)
[2016-09-12] MEDS ORDERED: BENZTROPINE 2 MG/2 ML AMP IV PRN (07:36)
[2016-09-12] MEDS ORDERED: ALUMINUM/MAGNES/SIMETH MAX STR 30 ML UDCUP PO PRN (07:36)
[2016-09-12] MEDS ORDERED: traMADol 50 MG TABLET PO PRN (07:36)
[2016-09-12] MEDS ORDERED: chlorproMAZINE INJ 50 MG in SODIUM CHLORIDE 0.9% 100 ML IV PRN (07:36)
[2016-09-12] MEDS ORDERED: LACTULOSE 20 GM/30 ML UDCUP PO PRN (07:36)
--- NOTE | 2016-09-12 08:00 | Oncology History&Physical ---
History of Present Illness History of present illness: Mr. Cowan is a 60 year old male admitted for further chemotherapy for unresectable squamous cell carcinoma of the esophagus. History of Present Illness Chief complaint: Administration of chemotherapy and monitoring of toxicity. Esophageal canc History of present illness: This is the third course of chemotherapy that is palliative treatment for squamous cell carcinoma of the esophagus and it will include Taxotere 100 mg IV day 1, cis-[place] 120 mg IV day 1 and 5-FU 1200 mg IV over 22 hours daily 4 days. Mr. Cowan is a 60 year old male who was found to have a mid esophageal mass. 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 The pathology specimen was [id number]. The patient had originally presented with vomiting and nausea of about a month' s duration without abdominal pain, diarrhea or constipation. The patient is cachectic. 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 CT scan demonstrated mediastinal involvement with relatively bulky disease and also suggested liver invasion directly by the tumor. The patient has a PEG tube in place and is receiving PEG tube feedings but he also is able to take some soft foods. His appetite actually continues to improve and he is continuing to improve in his ability to swallow and retained solid food. He still has occasional regurgitation of food but this is getting better. I will consider repeat EGD with his next course of chemotherapy. This patient was started on chemotherapy on June 21 and received cisplatin 120mg. on that day followed by 5-FU 1200mg. daily for 4 days that he is continuing to receive a continuous 24-hour infusion. Taxotere was added to his second course of chemotherapy. Since he had very little stomatitis and tolerated the chemotherapy fairly well, I am proceeding with course #3 of chemotherapy without altering any of the drug doses. He is eating more and more solid food. Past medical history: No known allergies. Current medications: Naproxen, and omeprazole. Social history: He smokes on a daily basis. He occasionally drinks alcohol. Family history: Is negative for any malignancies ROS Gen.: Positive for progressive weight loss Eyes: No history of chronic disease, infections or visual loss. ENT: No history of chronic infections, epistaxis, chronic sore throat Lungs: No history of asthma, emphysema, hemoptysis, chronic pleurisy or long- term or chronic infections Cardiovascular: No history of angina, coronary artery disease, congestive heart failure, cardiovascular surgery or DVT/VTE GI: Positive for dysphagia and regurgitation no history of upper or lower GI bleeding, melena, dysphagia, odynophagia, liver disease, gallbladder disease or pancreatic disease. : No history of kidney stones, chronic kidney infections or hematuria. Musculoskeletal: No history of chronic bone or joint pain or focal muscle atrophy or bone or joint deformity. Neurologic: No history of seizures, convulsions or paralysis. Psychiatric: No history of chronic psychiatric illness or psychiatric medications. Lymphatic: No history of significant or long-term lymphadenopathy Hematologic: He reports easy bruising and easy bleeding. Skin: No history of chronic skin infections or rashes or significant skin lesions. Physical examination: General: The patient is thin to the point of being cachectic but active. He does appear somewhat chronically ill. Eyes: Normal lids and conjunctivae. ENT: His oral mucosa and pharynx are normal. His teeth are in poor repair. His trachea is midline and he has no neck masses. Hearing is normal. Lungs: Slightly coarse breath sounds with scattered faint wheezing and a few rhonchi clearing after a couple of deep breaths. The chest moves symmetrically with respiration. Cardiovascular: His heart rhythm is regular without murmur, gallop or rub. There is no jugular venous distention, clubbing or cyanosis. Abdomen: He has a PEG tube in place. He is tender from the recent PEG tube placement. There is no ascites or distention and no distinct mass or organomegaly. Musculoskeletal: He has generalized muscle wasting but there is no focal muscle atrophy or bone or joint deformity. Neurologic: Cranial nerves II through XII are intact. No focal neurologic deficits. Nodes: There is no submandibular, cervical, supraclavicular or axillary adenopathy. Psychiatric: He is oriented to time, place, person and situation. Skin: No significant rashes or lesions. He does have a Mediport catheter in place just below the right mid clavicle. Impression: Patient admitted for administration of chemotherapy and monitoring for toxicity for squamous cell carcinoma of the esophagus. Documented mediastinal involvement and also documented liver invasion by the tumor. Emaciation, cachexia and malnutrition that is improving but has not completely cleared yet. Anemia of chronic disease, chemotherapy and probably some component of GI blood loss Home Medications Medication Instructions Recorded Confirmed Type Naproxen Sodium [Aleve] 220 mg PO QOTHER DAY PRN 06/10/16 08/15/16 History Omeprazole [Prilosec] 20 mg PO DAILY 06/10/16 08/15/16 History HYDROcodone/ACETAMIN 10-325 [[place] 10 mg PO Q6HR PRN 07/20/16 08/15/16 History 10-325] Promethazine Tab [Phenergan Tab] 25 mg PO Q6H PRN 07/20/16 08/15/16 History Allergies Allergy/AdvReac Type Severity Reaction Status Date / Time No Known Allergies Allergy Verified 06/10/16 08:08 Medical,Surgical,& Family Hx - Medical History Psychological: No history of: Anxiety Disorders, ADHD, Behavior Problems, Bipolar Disorder, Depression, Previous Suicide Attempt, Psychiatric/Substance Abuse Tx, Schizophrenia, Violent Behavior, Psychiatric Problems Neurology: No history of: Seizures HEENT: History of: Eye Problem (weeping both eyes) No history of: Dental Problems (missing teeth/fell out) Endocrine: No history of: Adrenal Disease, Diabetes Mellitus (IDDM), Diabetes Mellitus ( NIDDM), Thyroid Disorder, Endocrine Cancer, Endocrine Problems Rheumatology: No history of;: Psoriasis, Sjogrens, Systemic Lupus Erythematosus Respiratory: History of: Respiratory Problems (trouble breathing sometimes) Renal: No history of: Renal (Kidney) Cancer, Dialysis, Renal Failure, Renal Problems Genitourinary: No history of: Bladder Problem, Kidney Stones, Prostate Problems, Recurring Urinary Tract Infections, Genitourinary Cancer, Problems Gastrointestinal: History of: GERD (current) Musculoskeletal: No history of: Amputation, Back/Neck Problems, Musculoskeletal Problems ( sore back) Hematology: No history of: Anemia, Blood Transfusion Reaction, Bleeding Problems, Clotting Problems, Sickle Cell Disease, Hematologic Cancer, Blood Disorders Reproductive: No histroy: Penile Disorder, Sexually Transmitted Disease, Reproductive Cancer, Reproductive Problems Other: No history of: Anesthesia Reactions, Anaphylaxis, Cancer, Eczema, HIV, Malignant Hyperthermia, MRSA, Vancomycin-Resistant Enterococci, Skin Problems, Miscellaneous Medical Problems - Surgical History Thoracic Surgeries: Patient denies;: Kidney (Renal Surgery), Lithotripsy, Nephrectomy, Organ Transplant HEENT Surgeries: Patient denies: Eye Surgery, Thyroid Surgery, Tonsilectomy & Adenoidectomy Abdominal Surgeries: Patient denies: Abdominal Surgery, Appendectomy, Cholecystectomy, Colonoscopy , Gastric Bypass Surgery, EGD, Hernia Repair Reproductive Surgeries: Patient denies;: Breast Surgery, Cystoscopy, Genitourinary Surgery, Prostate Surgery, Vasectomy Orthopedic Surgeries: Patient denies;: Implanted Devices, Orthopedic Surgery, Spinal Surgery, Total Hip Replacement, Total Knee Replacement - Family History Family History: Denies;: Family Anesthesia Reaction, Family Cancer, Family Diabetes, Family Heart Disease, Family Hypertension, Family Psychiatric Problems, Family Stroke - Social History Smoking Status: Current every day smoker Results - Labs CBC & BMP: 09/12/16 07:50 09/12/16 07:50
[2016-09-12 08:03] LABS: Basophils % 0.3 % (0.0-0.8); Eosinophils # 0.1 10*3/uL (0.0-0.87); Eosinophils % 1.1 % (0.00-10.9); Hematocrit 24.8 VOL% (42.0-52.0); Immature Granulocytes % 0.5 %; Immature Granulocytes Absolute 0.04 #; Lymphocytes # 1.3 10*3/uL (1.4-4.0); Lymphocytes % 17.7 % (21.2-54.2); Mean Corpuscular HGB Conc 32.3 GM/DL (32-36); Mean Corpuscular Hemoglobin 30 PG (27-34); Mean Corpuscular Volume 92.5 FL (87-102); Mean Platelet Volume 8.6 FL (9.6-12.0); Monocytes # 0.6 10*3/uL (0.11-0.8); Monocytes % 8.1 % (1.7-12.7); Neutrophils # 5.4 10*3/uL (1.4-7.4); Neutrophils % 72.3 % (38.7-73.9); Platelet Count 235 T/CUMM (130-400); Red Blood Count 2.68 MC/CUMM (3.8-5.5); Red Cell Distribution Width 16.8 % (9.3-17.3); White Blood Count 7.5 T/CUMM (4-12)
[2016-09-12 08:35] LABS: Albumin 3.2 G/DL (3.4-5.0); Bilirubin,Total 0.5 MG/DL (0.2-1.0); Calcium 8.3 MG/DL (8.5-10.1); Magnesium 1.6 MG/DL (1.8-2.4); Osmolality,Calculated 296.7 MOS/KG (273-304); Potassium 4.3 MMOL/L (3.5-5.1); Total Protein 6.4 G/DL (6.4-8.3); Uric Acid 5.5 MG/DL (3.5-7.2)
[2016-09-12] MEDS ORDERED: GRANISETRON 1 MG/1 ML VIAL IV ONE (11:00)
[2016-09-12] MEDS ORDERED: DEXAMETHASONE INJ 20 MG in SODIUM CHLORIDE 0.9% 50 ML IV ONE (11:00)
--- NOTE | 2016-09-12 13:40 | XRay Report ---
Exam: XR chest 2V Date: 09/12/2016 7:37 AM Indication: Liver cancer cachexia Comparison: 07/20/2016 Technical: PA lateral chest. Findings: The heart is normal in size. Mild hyperinflation is present. A right-sided port catheter is present in the subclavian vein with the distal tip superior vena cava. No pneumothorax. Mediastinum is intact. Minimal scarring or atelectatic change in the medial right base Impression: 1. Interval placement of a right-sided subclavian port catheter without pneumothorax. 2. No acute cardiopulmonary pathology present. 3. Minimal scarring in the medial right base PROCEDURE INTERPRETED AT [facility] DEPARTMENT OF RADIOLOGY Final Report Signed by: Dr. Don Montelongo
[2016-09-12] MEDS: FLUOROURACIL 1,200 MG in SODIUM CHLORIDE 0.9% 1,000 ML IV SCH (13:43)
[2016-09-12] MEDS: ONDANSETRON 4 MG/2 ML VIAL IV PRN (22:24)
[2016-09-13] MEDS: ONDANSETRON 4 MG/2 ML VIAL IV PRN (06:04)
--- NOTE | 2016-09-13 07:48 | Oncology Progress Note ---
Oncology Subjective PN Interval history: Today is day #2 of course #3 of palliative chemotherapy for squamous cell carcinoma of the esophagus. Lab work on admission included a white cell count of 7500 with a hemoglobin of 8.0 and a platelet count of 235,000. The chemistry package included a serum creatinine of 1.2. I am going to recheck lab work tomorrow in case he needs transfusion. I would not be surprised if his hemoglobin were not lower tomorrow than on admission. He is tolerating chemotherapy extremely well. He has had no nausea or vomiting and no mouth or throat irritation. He has had no dysphagia. He is fully oriented and alert and in no acute distress. We are continuing chemotherapy and monitoring for toxicity. Exam - Constitutional Vitals: Period Temp Pulse Resp BP Sys/[place] Pulse Ox Last 24 Hr 96.7 F-98.4 F 62-72 18-20 139-174/67-89 97-100 Results - Labs CBC & BMP: 09/12/16 07:50 09/12/16 07:50
[2016-09-13] MEDS ORDERED: NAPROXEN 250 MG TABLET PO PRN (07:52)
[2016-09-13] MEDS: GRANISETRON 1 MG/1 ML VIAL IV SCH (09:00)
[2016-09-13] MEDS: PANTOPRAZOLE 40 MG TABLET PO SCH (09:01)
[2016-09-13] MEDS: FLUOROURACIL 1,200 MG in SODIUM CHLORIDE 0.9% 1,000 ML IV SCH (12:07)
[2016-09-13] MEDS: PROMETHAZINE 25 MG TABLET PO PRN (20:27)
[2016-09-14 05:40] LABS: Basophils % 0.2 % (0.0-0.8); Eosinophils % 0.6 % (0.00-10.9); Hematocrit 25.6 VOL% (42.0-52.0); Hemoglobin 8.7 GM/DL (14.0-18.0); Immature Granulocytes % 0.4 %; Immature Granulocytes Absolute 0.02 #; Lymphocytes # 1.6 10*3/uL (1.4-4.0); Lymphocytes % 29.6 % (21.2-54.2); Mean Corpuscular Hemoglobin 30 PG (27-34); Mean Corpuscular Volume 88.3 FL (87-102); Mean Platelet Volume 9.1 FL (9.6-12.0); Monocytes # 0.2 10*3/uL (0.11-0.8); Monocytes % 3.4 % (1.7-12.7); Neutrophils # 3.5 10*3/uL (1.4-7.4); Neutrophils % 65.8 % (38.7-73.9); Platelet Count 234 T/CUMM (130-400); Red Cell Distribution Width 16.5 % (9.3-17.3); White Blood Count 5.4 T/CUMM (4-12)
[2016-09-14 06:19] LABS: Albumin 3.1 G/DL (3.4-5.0); Bilirubin,Total 0.8 MG/DL (0.2-1.0); Calcium 8.3 MG/DL (8.5-10.1); Osmolality,Calculated 285.1 MOS/KG (273-304); Potassium 3.9 MMOL/L (3.5-5.1); Total Protein 6.3 G/DL (6.4-8.3)
--- NOTE | 2016-09-14 08:16 | Oncology Progress Note ---
Oncology Subjective PN Interval history: We are beginning day #3 of infusion chemotherapy using 5 fluorouracil on this patient with a history of squamous cell carcinoma of the esophagus. He is anemic with a hemoglobin of 8.7. He is tolerating chemotherapy fairly well although he had nausea and vomiting last night. He continues to have dysphagia from his esophageal cancer. On physical examination he is oriented and alert. His oral mucosa and pharynx are normal. His lungs are clear with normal breath sounds. Heart sounds are normal. Cranial nerves II through XII are intact and he has no focal neurologic deficits. We are continuing IV infusion chemotherapy and monitor for toxicity. Exam - Constitutional Vitals: Period Temp Pulse Resp BP Sys/[place] Pulse Ox Last 24 Hr 97.2 F-98.0 F 58-80 18-20 130-174/67-84 98-100 Results - Labs CBC & BMP: 09/14/16 04:00 09/14/16 04:00
[2016-09-14] MEDS: GRANISETRON 1 MG/1 ML VIAL IV SCH (09:05)
[2016-09-14] MEDS: PANTOPRAZOLE 40 MG TABLET PO SCH (09:05)
[2016-09-14] MEDS: FLUOROURACIL 1,200 MG in SODIUM CHLORIDE 0.9% 1,000 ML IV SCH (09:50)
--- NOTE | 2016-09-15 07:35 | Oncology Progress Note ---
Oncology Subjective PN Interval history: Patient with squamous cell carcinoma of the distal esophagus currently on IV infusion 5-FU. We are monitoring this for toxicity. He has had anorexia and mild nausea today and minimal stomatitis. He continues to have dysphagia. On physical examination he is chronically ill-appearing but less emaciated than he had been. His respirations are unlabored. His lungs are clear. Heart sounds are normal. Has a PEG tube in place in his abdomen. He is thin but no longer emaciated or cachectic. Cranial nerves II through XII are intact. He is oriented to time, place, person and situation. His last 24 hour infusion of 5-FU will be up tomorrow and he will go home then. Exam - Constitutional Vitals: Period Temp Pulse Resp BP Sys/[place] Pulse Ox Last 24 Hr 96.0 F-98.5 F 68-77 12-20 133-147/62-75 98-100 Results - Labs CBC & BMP: 09/14/16 04:00 09/14/16 04:00
[2016-09-15] MEDS: FLUOROURACIL 1,200 MG in SODIUM CHLORIDE 0.9% 1,000 ML IV SCH (08:15)
[2016-09-15] MEDS: GRANISETRON 1 MG/1 ML VIAL IV SCH (08:23)
[2016-09-15] MEDS: PANTOPRAZOLE 40 MG TABLET PO SCH (08:23)
[2016-09-15 16:24] LABS: Apearance,Urine CLEAR (Clear); Bilirubin,Urine Negative (Negative); Blood, Urine Negative (Negative); Glucose,Urine (UA) Negative (Negative); Ketones,Urine Negative (Negative); Mucus,Urine Occasional /LPF (Occasional); Nitrite,Urine Negative (Negative); Protein,Urine Negative; RBC,Urine <1 /HPF (0-4); Urine Color Yellow (Yellow); Urine Specific Gravity 1.013 (1.001-1.035); Urine Urobilinogen < 2.0 EU/DL (0.2-1.0); WBC,Urine <1 /HPF (0-6)
[2016-09-15] MEDS: PROMETHAZINE 25 MG TABLET PO PRN (21:13)
[2016-09-15] MEDS: ONDANSETRON 4 MG/2 ML VIAL IV PRN (23:31)
[2016-09-16] MEDS ORDERED: HEPARIN LOCK FLUSH 500 UNIT/5 ML SYRINGE IV ONE (06:40)
[2016-09-16] MEDS: PROMETHAZINE 25 MG TABLET PO PRN (06:46)
[2016-09-16] MEDS: GRANISETRON 1 MG/1 ML VIAL IV SCH (07:38)
[2016-09-16] MEDS ORDERED: HEPARIN LOCK FLUSH 500 UNIT/5 ML SYRINGE IV PRN (07:40)
[2016-09-16] MEDS: PANTOPRAZOLE 40 MG TABLET PO SCH (07:41)
--- NOTE | 2016-09-16 07:57 | Discharge Summary ---
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 Mr. Cowan is a 60 year old male who was found to have a mid esophageal mass. 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 The pathology specimen was [id number]. The patient had originally presented with vomiting and nausea of about a month' s duration without abdominal pain, diarrhea or constipation. The patient is cachectic. 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 CT scan demonstrated mediastinal involvement with relatively bulky disease and also suggested liver invasion directly by the tumor. The patient has a PEG tube in place and is receiving PEG tube feedings but he also is able to take some soft foods. His appetite actually continues to improve and he is continuing to improve in his ability to swallow and retained solid food. He still has occasional regurgitation of food but this is getting better. I will have him return for readmission on October 10. I am ordering a repeat EGD to be done the week prior to that admission in case we need to change his chemotherapy. Discharge Plan - Discharge Data Disposition: Disch To Home/Self Care Condition at Discharge: Guarded Discharge Diet: advance to your usual diet Activity: resume usual activities as tolerated Hygiene: no restrictions Weight Bearing at Discharge: weight bear as tolerated Driving: other Contact your physician if you experience:: fever over 101, Difficulty voiding, Redness or swelling, Nausea/Vomiting, Shortness of breath, Bleeding, pain uncontrolled by pain medications - Discharge Medications Continue Omeprazole [Prilosec] 20 mg PO DAILY Naproxen Sodium [Aleve] 220 mg PO QOTHER DAY PRN PRN Reason: Pain HYDROcodone/ACETAMIN 10-325 [Pam[place]o 10-325] 10 mg PO Q6HR PRN PRN Reason: Pain Promethazine Tab [Phenergan Tab] 25 mg PO Q6H PRN PRN Reason: Nausea - Follow Up or Referral - Forms/Instructions Additional Discharge Instructions: Discharge on previous home medications. Schedule readmission for October 10, 2016. Schedule EGD with a week prior to the admission. Exam - Constitutional Vitals: Period Temp Pulse Resp BP Sys/[place] Pulse Ox Last 24 Hr 96.5 F-98.4 F 52-99 16-21 132-170/69-79 97-99 Discharge Results Labs on day of discharge: Labs from last 24 hours 09/15/16 10:00 Urine Color Yellow Urine Appearance Clear Urine pH 5.0 Ur Specific [place] 1.013 Urine Protein Negative Urine Glucose (UA) Negative Urine Ketones Negative Urine Blood Negative Urine Nitrate Negative Urine Bilirubin Negative Urine Urobilinogen < 2.0 H Urine Leukocytes Negative Urine RBC <1 Urine WBC <1 Urine Mucus Occasional Ur Culture Indicated? Not indicated DS: Provider Date of admission: 09/12/16 07:14 Primary care physician: . No PCP Attending physician on admission: Rm Jackson MD Consults: 09/12/16 09:30 Consult to Pharmacy [CONS] Routine Reason for Pharmacy Consult: Adjust Meds Renal Funct Discharging clinician: Rm Jackson MD
[2016-09-16 09:00] VITALS: BP 140/67
== END 2016-09-16 12:45 | disposition home or self-care, planned readmission (81) | DRG 693 ==
LOC: EDBD → N.4E 07:14
PROVIDERS: ADMIT Specialist; ATTEND Specialist

== ENCOUNTER 2017-01-09 10:37 | Inpatient (IN) ==
--- NOTE | 2017-01-09 11:36 | XRay Report ---
Exam: XR chest 1V Date: 01/09/2017 11:01 AM Indication: Chills fever weight loss weakness shortness of breath Comparison: 09/12/2016 Technical AP portable Findings:: Underlying component of hyperinflation. A port is in placement right-sided approach. No obvious consolidating infiltrate or effusion. The mediastinum and bony structures reveal no acute findings. No pneumothorax. Impression: 1. Stable position of the right subclavian catheter 2. No obvious infiltrate or effusion with mild hyperinflation. PROCEDURE INTERPRETED AT [facility] DEPARTMENT OF RADIOLOGY Final Report Signed by: Dr. Don Montelongo
[2017-01-09] MEDS ORDERED: SODIUM CHLORIDE 0.9% 1,000 ML IV STA (11:44)
[2017-01-09 12:58] LABS: Basophils % 0.1 % (0.0-0.8); Hematocrit 20.9 VOL% (42.0-52.0); Hemoglobin 7.1 GM/DL (14.0-18.0); Immature Granulocytes % 1.2 %; Immature Granulocytes Absolute 0.15 #; Lymphocytes # 0.2 10*3/uL (1.4-4.0); Mean Corpuscular Hemoglobin 29 PG (27-34); Monocytes # 0.7 10*3/uL (0.11-0.8); Neutrophils % 90.7 % (38.7-73.9); Platelet Count 238 T/CUMM (130-400); Red Blood Count 2.46 MC/CUMM (3.8-5.5); Red Cell Distribution Width 13.4 % (9.3-17.3); White Blood Count 12.2 T/CUMM (4-12)
[2017-01-09 13:31] LABS: Albumin 2.3 G/DL (3.4-5.0); Amylase 44 U/L (25-115); Bilirubin,Total 0.9 MG/DL (0.2-1.0); Calcium 8.9 MG/DL (8.5-10.1); Magnesium 1.8 MG/DL (1.8-2.4); Potassium 3.8 MMOL/L (3.5-5.1); Total Protein 6.3 G/DL (6.4-8.3)
[2017-01-09 13:35] LABS: Ammonia < 10 UMOL/L (11-32)
[2017-01-09 13:37] LABS: Lactic Acid 1.9 MMOL/L (0.4-2.0)
--- NOTE | 2017-01-09 13:37 | Emergency Department Note ---
Marilyn Moreira Mantricia, am scribing for, and in the presence of, Chad Steele MD 12:00. Ivette Moreira Phillip K, MD, personally performed the services described in this documentation, ascribed by Jacquelyn Sanders in my presence, and it is both accurate and complete [id number] . Arrival - Arrival Chief Complaint: Non-Specific Stated Complaint: BP LOW ED Nursing Triage Note: Family member reports pt has been having chills, tremors , weakness, and low blood pressure since Monday. Ravie ox would not clam picker in triage. Mode of Arrival: Wheelchair Limitations: No Limitations Source: Patient Time Seen by Provider: 01/09/17 11:30 - History of Present Illness HPI Narrative: Pt is a 61 y/o black male arriving to ED with c/o generalized weakness and low blood pressure that onset 2 days ago. At time of exam, pt's blood pressure is 79 /43. Family states that pt has also experienced chills and a chronic cough. Pt has a PMHx of esophageal cancer and has a PEG tube and mediport placed. Family reports that pt stopped chemotherapy 4 months ago "because it was not helping. Pt went to [place] for a 2nd opinion and was told that he had 2-3 months to live. Family admits that pt still smokes daily. No other complaints were reported to ED. Onset (ago): day(s) Consistency: constant Allergies/Adverse Reactions: Allergies Allergy/AdvReac Type Severity Reaction Status Date / Time No Known Allergies Allergy Verified 06/10/16 08:08 Home Medications: Home Medications Medication Instructions Recorded Confirmed Type HYDROcodone/ACETAMIN 10-325 [[place] 10 mg PO Q4-6H PRN 07/20/16 01/09/17 History 10-325] Promethazine Tab [Phenergan Tab] 25 mg PO Q6H PRN 07/20/16 01/09/17 History Review of System - Review of System 12 point system: reviewed and no additional remarkable complaints except as stated - Review of System Constitutional: Present: chills, weakness (generalized). Absent: diaphoresis, fever Respiratory: Present: cough (chronic) Cardiovascular: Absent: chest pain Gastrointestinal: Absent: abdominal pain, nausea, vomiting, diarrhea Medical,Surgical,& Family Hx - Medical History Psychological: No history of: Anxiety Disorders, ADHD, Behavior Problems, Bipolar Disorder, Depression, Previous Suicide Attempt, Psychiatric/Substance Abuse Tx, Schizophrenia, Violent Behavior, Psychiatric Problems Neurology: No history of: Seizures HEENT: History of: Eye Problem (weeping both eyes) No history of: Dental Problems (missing teeth/fell out) Endocrine: No history of: Adrenal Disease, Diabetes Mellitus (IDDM), Diabetes Mellitus ( NIDDM), Thyroid Disorder, Endocrine Cancer, Endocrine Problems Rheumatology: No history of;: Psoriasis, Sjogrens, Systemic Lupus Erythematosus Respiratory: History of: Respiratory Problems (trouble breathing sometimes) Renal: No history of: Renal (Kidney) Cancer, Dialysis, Renal Failure, Renal Problems Genitourinary: No history of: Bladder Problem, Kidney Stones, Prostate Problems, Recurring Urinary Tract Infections, Genitourinary Cancer, Problems Gastrointestinal: History of: GERD (current), Gastrointestinal Cancer ( ESOPHAGEAL) Musculoskeletal: No history of: Amputation, Back/Neck Problems, Musculoskeletal Problems ( sore back) Hematology: No history of: Anemia, Blood Transfusion Reaction, Bleeding Problems, Clotting Problems, Sickle Cell Disease, Hematologic Cancer, Blood Disorders Reproductive: No histroy: Penile Disorder, Sexually Transmitted Disease, Reproductive Cancer, Reproductive Problems Other: No history of: Anesthesia Reactions, Anaphylaxis, Cancer, Eczema, HIV, Malignant Hyperthermia, MRSA, Vancomycin-Resistant Enterococci, Skin Problems, Miscellaneous Medical Problems - Surgical History Cardiac Surgeries: Patient Denies: Cardiac Catheterization Thoracic Surgeries: Patient denies;: Kidney (Renal Surgery), Lithotripsy, Nephrectomy, Organ Transplant HEENT Surgeries: Patient denies: Eye Surgery, Thyroid Surgery, Tonsilectomy & Adenoidectomy Abdominal Surgeries: Surgical HX of: EGD Patient denies: Abdominal Surgery, Appendectomy, Cholecystectomy, Colonoscopy , Gastric Bypass Surgery, Hernia Repair Reproductive Surgeries: Patient denies;: Breast Surgery, Cystoscopy, Genitourinary Surgery, Prostate Surgery, Vasectomy Orthopedic Surgeries: Patient denies;: Implanted Devices, Orthopedic Surgery, Spinal Surgery, Total Hip Replacement, Total Knee Replacement - Family History Family History: Denies;: Family Anesthesia Reaction, Family Cancer, Family Diabetes, Family Heart Disease, Family Hypertension, Family Psychiatric Problems, Family Stroke - Social History Smoking Status: Current every day smoker Exam Vital Signs: Vital Signs Temperature 98.3 F 01/09/17 13:14 Pulse Rate 96 H 01/09/17 13:14 Respiratory Rate 18 01/09/17 13:14 Blood Pressure 80/58 01/09/17 13:14 - General General appearance: alert, in no apparent distress - Head Head exam: Present: atraumatic, normocephalic, normal inspection - Eye Eye exam: Present: normal appearance, PERRL, EOMI - ENT ENT exam: Present: normal exam, normal oropharynx, mucous membranes moist, TM's normal bilaterally, normal external ear exam - Neck Neck exam: Present: normal inspection, full ROM, trachea midline. Absent: tenderness - Chest Chest inspection: Present: normal inspection, symmetric chest wall rise, other ( Mediport present). Absent: tenderness - Respiratory Respiratory exam: Present: normal lung sounds bilaterally - Cardiovascular Cardiovascular exam: Present: normal rhythm, tachycardia, normal heart sounds - Abdominal Exam Abdominal exam: Present: soft, normal bowel sounds, other (PEG tube present). Absent: distention, tenderness, guarding, rebound - Extremities Exam Extremities exam: Present: normal inspection, full ROM, normal capillary refill. Absent: tenderness, pedal edema - Back Exam Back exam: Present: normal inspection, full ROM. Absent: tenderness - Neurological Exam Neurological exam: Present: alert, oriented X3, CN II-XII intact, normal gait, reflexes normal - Psychiatric Psychiatric exam: Present: normal affect, normal mood - Skin Skin exam: Present: warm, dry, intact, normal color Course Course Narrative: Patient discussed with Dr. Jackson and the hospitalist. He is not undergoing any chemotherapy or radiation therapy. Patient will be admitted to the hospitalist and Dr. Jackson will consult. Results - Labs CBC & BMP: 01/09/17 12:27 01/09/17 12:27 Lab Results: I have reviewed the patients labs - Diagnostic Findings Procedure: Chest x-ray: report reviewed by me (1. Stable position of the right subclavian catheter 2. No obvious infiltrate or effusion with mild hyperinflation.) Disposition Clinical Impression: Anemia, Dehydration, Cachexia, Esophageal cancer Case discussed with: patient, patient's family Disposition: Still a Patient Condition: Guarded Additional Instructions: Admit to the hospitalist.
[2017-01-09] MEDS ORDERED: SODIUM CHLORIDE 0.9% 250 ML IV PRN ×2 (14:15→14:50)
[2017-01-09] MEDS ORDERED: MORPHINE 2 MG/1 ML SYRINGE IV PRN (14:51)
[2017-01-09] MEDS ORDERED: ONDANSETRON 4 MG/2 ML VIAL IV PRN (14:51)
--- NOTE | 2017-01-09 15:36 | Hospitalist History & Physical ---
Assessment and Plan - Time spent with patient Time spent with patient: Greater than 30 minutes (1) Anemia Status: Acute Assessment and plan: The anemic is chronic in nature. Hemoglobin and hematocrit was noted at 7.1/ 20.9. We will transfuse 2 units of packed red blood cells and recheck in a.m. Current Visit: Yes Qualifiers: Anemia type: unspecified type Qualified Code(s): D64.9 - Anemia, unspecified (2) Dehydration Status: Acute Assessment and plan: BUN at 34 creatinine at 1.10; we will gently rehydrate and reassess in a.m. We will consult dietary for recommendations for enteral feedings. Current Visit: Yes (3) Esophageal cancer Status: Acute Assessment and plan: We will consult Dr. Jackson for evaluation and assistance during the clinical encounter. Current Visit: Yes History of Present Illness Chief complaint: Hypotension History of present illness: This is a very poor and unfortunate 61-year-old male that presented to the ED at [facility] this morning for the evaluation of hypotension. The patient has a very complex medical history significant for: Nicotine addiction, current nicotine use, carcinoma of the esophagus, and dysphasia. The patient has a surgical history significant for percutaneous gastrostomy tube placement and Mediport placement. The patient was diagnosed with squamous cell carcinoma primarily located in the esophagus on June 2016. The patient underwent multiple rounds of chemotherapy and and radiation. They report that the chemotherapy concluded 4 months ago and at that time they were told that there was "nothing else that could be done on ". At the time of diagnosis, the patient was told that he had between 2-6 months to live. The patient is managed in the outpatient setting by Dr. Jackson. The patient was scheduled to see Dr. Jackson this morning when his family noticed that he was weaker than normal. They became alarmed and transported him to the ED for further evaluation. The patient was assessed at the time of ED presentation and was found to be grossly hypertensive with a blood pressure of 79/43. Labs were obtained; complete blood count noted a white blood cell count at 12.2, hemoglobin 7.1, hematocrit 20.9, platelet count of 238, MPV at 9, neutrophil% 90.7, lymphocytes % 2.0, neutrophil #11.0 lymphocytes % 0.2. Chemistry panel reported sodium at 136, potassium 3.8, chloride 101, carbon dioxide 26, anion gap 12.8, BUN 34, creatinine 1.10, GFR calculation 76, glucose 141, calculated osmolality 281.0, lactic acid 1.9, calcium 8.9, AST 28, magnesium 1.8, total bilirubin 0.90, alkaline phosphatase 125, ALT 27, ammonia less than 10, total protein 6.3, albumin 2.3, globulin 4.0, lipase 60.0, amylase 44. Chest x-ray reported stable position of the right subclavian catheter and no obvious infiltration or effusion with mild hyper inflation.After brief discussion with both Dr. Clark and Dr. Camp, the patient will be admitted to the hospitalist services for continuation of care. We will consult Dr. Mtz, patient is known to him; patient is known to his practice. Spoke with the family in great detail regarding the patient's current status. The family reports that they have been giving a grave prognosis regarding the patient's recovery. The family are in agreement and are requesting hospice services. CODE STATUS discussed, family is in agreement and request that the patient the made a DO NOT RESUSCITATE. I am consulting sr. social media & mobile manager to to speak with the family regarding hospice services. Medications have been reconciled. Home Medications Medication Instructions Recorded Confirmed Type HYDROcodone/ACETAMIN 10-325 [[place] 10 mg PO Q4-6H PRN 07/20/16 01/09/17 History 10-325] Promethazine Tab [Phenergan Tab] 25 mg PO Q6H PRN 07/20/16 01/09/17 History Allergies Allergy/AdvReac Type Severity Reaction Status Date / Time No Known Allergies Allergy Verified 06/10/16 08:08 Medical,Surgical,& Family Hx - Medical History Psychological: No history of: Anxiety Disorders, ADHD, Behavior Problems, Bipolar Disorder, Depression, Previous Suicide Attempt, Psychiatric/Substance Abuse Tx, Schizophrenia, Violent Behavior, Psychiatric Problems Neurology: No history of: Seizures HEENT: History of: Eye Problem (weeping both eyes) No history of: Dental Problems (missing teeth/fell out) Endocrine: No history of: Adrenal Disease, Diabetes Mellitus (IDDM), Diabetes Mellitus ( NIDDM), Thyroid Disorder, Endocrine Cancer, Endocrine Problems Rheumatology: No history of;: Psoriasis, Sjogrens, Systemic Lupus Erythematosus Respiratory: History of: Respiratory Problems (trouble breathing sometimes) Renal: No history of: Renal (Kidney) Cancer, Dialysis, Renal Failure, Renal Problems Genitourinary: No history of: Bladder Problem, Kidney Stones, Prostate Problems, Recurring Urinary Tract Infections, Genitourinary Cancer, Problems Gastrointestinal: History of: GERD (current), Gastrointestinal Cancer ( ESOPHAGEAL) Musculoskeletal: No history of: Amputation, Back/Neck Problems, Musculoskeletal Problems ( sore back) Hematology: No history of: Anemia, Blood Transfusion Reaction, Bleeding Problems, Clotting Problems, Sickle Cell Disease, Hematologic Cancer, Blood Disorders Reproductive: No histroy: Penile Disorder, Sexually Transmitted Disease, Reproductive Cancer, Reproductive Problems Other: No history of: Anesthesia Reactions, Anaphylaxis, Cancer, Eczema, HIV, Malignant Hyperthermia, MRSA, Vancomycin-Resistant Enterococci, Skin Problems, Miscellaneous Medical Problems - Surgical History Cardiac Surgeries: Patient Denies: Cardiac Catheterization Thoracic Surgeries: Patient denies;: Kidney (Renal Surgery), Lithotripsy, Nephrectomy, Organ Transplant HEENT Surgeries: Patient denies: Eye Surgery, Thyroid Surgery, Tonsilectomy & Adenoidectomy Abdominal Surgeries: Surgical HX of: EGD Patient denies: Abdominal Surgery, Appendectomy, Cholecystectomy, Colonoscopy , Gastric Bypass Surgery, Hernia Repair Reproductive Surgeries: Patient denies;: Breast Surgery, Cystoscopy, Genitourinary Surgery, Prostate Surgery, Vasectomy Orthopedic Surgeries: Patient denies;: Implanted Devices, Orthopedic Surgery, Spinal Surgery, Total Hip Replacement, Total Knee Replacement - Family History Family History: Denies;: Family Anesthesia Reaction, Family Cancer, Family Diabetes, Family Heart Disease, Family Hypertension, Family Psychiatric Problems, Family Stroke - Social History Smoking Status: Current every day smoker 12 point system: reviewed and no additional remarkable complaints except as stated Exam - Constitutional Vitals: Period Temp Pulse Resp BP Sys/[place] Pulse Ox Last 24 Hr 98.3 F-98.3 F 96 18-18 80-80/58-58 General appearance: mild distress, cachectic - Head Head exam: Present: normal inspection. Absent: normocephalic, atraumatic - Eye Eye exam: Present: EOMI. Absent: conjunctival injection, nystagmus Pupils: Present: SWAPNA, normal accommodation - ENT ENT exam: Present: normal exam, normal external ear exam, normal oropharynx - Neck Neck exam: Present: normal inspection. Absent: lymphadenopathy, meningismus, tenderness, thyromegaly - Respiratory Respiratory exam: Present: clear to auscultation bilaterally, other (Mediport noted to right chest wall). Absent: rales, rhonchi, stridor, wheezes - Cardiovascular Cardiovascular exam: Present: regular rate and rhythm, other (Mediport noted to right chest wall). Absent: diastolic murmur, gallop, JVD, systolic murmur - GI/Abdominal GI/Abdominal exam: Present: normal bowel sounds, soft, other (PEG tube noted) - Extremities Exam Extremities exam: Present: normal inspection, normal capillary refill, full ROM. Absent: edema - Back Exam Back exam: Present: normal inspection - Neurological Exam Neurological exam: Present: alert, oriented X3, CN II-XII intact - Psychiatric Psychiatric exam: Present: flat affect - Skin Skin exam: Present: other (Admission) Results - Labs CBC & BMP: 01/09/17 12:27 01/09/17 12:27 Lab Results: I have reviewed the past 24 hour labs Quality Measures - VTE Contraindication to Pharmacological VTE Prophylaxis: Active Bleeding
--- NOTE | 2017-01-09 15:39 | Hospitalist Progress Note ---
Hospitalist: Subjective Interval history: I have seen and examined the patient agree the assessment plan as outlined by Yudy Naqvi nurse practitioner. Mr. Cowan is a 61-year-old male with esophageal cancer known to Dr. Veras. He has a PEG tube in place. He presents with weakness and fatigue secondary to symptomatic anemia. Denies any melena or hematochezia. Will admit the patient to inpatient and consult hospice services and obtain in the meantime medical studies. Will ask gastroenterology and Exam - Constitutional Vitals: Period Temp Pulse Resp BP Sys/[place] Pulse Ox Last 24 Hr 98.3 F-98.3 F 96 18-18 80-80/58-58 Results - Labs CBC & BMP: 01/09/17 12:27 01/09/17 12:27 Quality Measures - VTE Contraindication to Pharmacological VTE Prophylaxis: Active Bleeding
--- NOTE | 2017-01-09 17:18 | Oncology Consult Note ---
History of Present Illness Chief complaint: Advanced, and stage esophageal cancer, squamous cell History of present illness: Mr. 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 At that point I suggested hospice with the family sought a second opinion in [facility] and came back here to request radiation. The radiation is being carried out now but the patient still has not improved significantly. In fact his condition has gradually worsened. He is required PEG tube feedings and has become progressively more debilitated and weak. The patient was being transferred from the emergency room to his private room and during that period of time he became unresponsive and developed left-sided hemiplegia. At this point the patient's family has decided to make him a DO NOT RESUSCITATE. Past medical history: No known allergies. Current medications: Naproxen, and omeprazole. Social history: He smokes on a daily basis. He occasionally drinks alcohol. Family history: Is negative for any malignancies ROS is from prior hospital stays. The patient cannot respond verbally at the present time and is hemiplegic. Gen.: Positive for progressive weight loss Eyes: No history of chronic disease, infections or visual loss. ENT: No history of chronic infections, epistaxis, chronic sore throat Lungs: No history of asthma, emphysema, hemoptysis, chronic pleurisy or long- term or chronic infections Cardiovascular: No history of angina, coronary artery disease, congestive heart failure, cardiovascular surgery or DVT/VTE GI: Positive for dysphagia and regurgitation no history of upper or lower GI bleeding, melena, dysphagia, odynophagia, liver disease, gallbladder disease or pancreatic disease. : No history of kidney stones, chronic kidney infections or hematuria. Musculoskeletal: No history of chronic bone or joint pain or focal muscle atrophy or bone or joint deformity. Neurologic: No history of seizures, convulsions or paralysis. Psychiatric: No history of chronic psychiatric illness or psychiatric medications. Lymphatic: No history of significant or long-term lymphadenopathy Hematologic: He reports easy bruising and easy bleeding. Skin: No history of chronic skin infections or rashes or significant skin lesions. Physical examination: General: The patient is emaciated, cachectic and malnourished and unresponsive. Eyes: His eyes deviate to the left. ENT: His trachea is midline. Palpate no definite masses. He has had surgery and there is radiation change involving the left neck. Lungs: Breath sounds are coarse without rales or wheezes but I hear basilar rhonchi. Cardiovascular: His heart rhythm is regular. I hear no carotid bruits. There is no clubbing, cyanosis or edema. Abdomen: He has a PEG tube in place in the upper outer quadrant on the left. There is no ascites and I palpate no masses. Musculoskeletal: He has left-sided hemiplegia. He is gripping his sheets with his right hand. Neurologic: Left-sided hemiplegia that apparently is new onset. His eyes deviate to the left. Impression: The patient is apparently had a cerebrovascular accident that occurred in the process of transferring him from the emergency room to the floor. 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 I agree with making this patient a DO NOT RESUSCITATE. His prognosis is clearly extremely poor even if he recovers from the current situation, which I doubt that he will. Home Medications Medication Instructions Recorded Confirmed Type HYDROcodone/ACETAMIN 10-325 [[place] 10 mg PO Q4-6H PRN 07/20/16 01/09/17 History 10-325] Promethazine Tab [Phenergan Tab] 25 mg PO Q6H PRN 07/20/16 01/09/17 History Allergies Allergy/AdvReac Type Severity Reaction Status Date / Time No Known Allergies Allergy Verified 06/10/16 08:08 Medical,Surgical,& Family Hx - Medical History Psychological: No history of: Anxiety Disorders, ADHD, Behavior Problems, Bipolar Disorder, Depression, Previous Suicide Attempt, Psychiatric/Substance Abuse Tx, Schizophrenia, Violent Behavior, Psychiatric Problems Neurology: No history of: Seizures HEENT: History of: Eye Problem (weeping both eyes) No history of: Dental Problems (missing teeth/fell out) Endocrine: No history of: Adrenal Disease, Diabetes Mellitus (IDDM), Diabetes Mellitus ( NIDDM), Thyroid Disorder, Endocrine Cancer, Endocrine Problems Rheumatology: No history of;: Psoriasis, Sjogrens, Systemic Lupus Erythematosus Respiratory: History of: Respiratory Problems (trouble breathing sometimes) Renal: No history of: Renal (Kidney) Cancer, Dialysis, Renal Failure, Renal Problems Genitourinary: No history of: Bladder Problem, Kidney Stones, Prostate Problems, Recurring Urinary Tract Infections, Genitourinary Cancer, Problems Gastrointestinal: History of: GERD (current), Gastrointestinal Cancer ( ESOPHAGEAL) Musculoskeletal: No history of: Amputation, Back/Neck Problems, Musculoskeletal Problems ( sore back) Hematology: No history of: Anemia, Blood Transfusion Reaction, Bleeding Problems, Clotting Problems, Sickle Cell Disease, Hematologic Cancer, Blood Disorders Reproductive: No histroy: Penile Disorder, Sexually Transmitted Disease, Reproductive Cancer, Reproductive Problems Other: No history of: Anesthesia Reactions, Anaphylaxis, Cancer, Eczema, HIV, Malignant Hyperthermia, MRSA, Vancomycin-Resistant Enterococci, Skin Problems, Miscellaneous Medical Problems - Surgical History Cardiac Surgeries: Patient Denies: Cardiac Catheterization Thoracic Surgeries: Patient denies;: Kidney (Renal Surgery), Lithotripsy, Nephrectomy, Organ Transplant HEENT Surgeries: Patient denies: Eye Surgery, Thyroid Surgery, Tonsilectomy & Adenoidectomy Abdominal Surgeries: Surgical HX of: EGD Patient denies: Abdominal Surgery, Appendectomy, Cholecystectomy, Colonoscopy , Gastric Bypass Surgery, Hernia Repair Reproductive Surgeries: Patient denies;: Breast Surgery, Cystoscopy, Genitourinary Surgery, Prostate Surgery, Vasectomy Orthopedic Surgeries: Patient denies;: Implanted Devices, Orthopedic Surgery, Spinal Surgery, Total Hip Replacement, Total Knee Replacement - Family History Family History: Denies;: Family Anesthesia Reaction, Family Cancer, Family Diabetes, Family Heart Disease, Family Hypertension, Family Psychiatric Problems, Family Stroke - Social History Smoking Status: Current every day smoker Exam - Constitutional Vitals: Period Temp Pulse Resp BP Sys/[place] Pulse Ox Last 24 Hr 98.3 F-98.3 F 96 18-18 80-80/58-58 Results - Labs CBC & BMP: 01/09/17 12:27 01/09/17 12:27 Quality Measures - VTE Contraindication to Pharmacological VTE Prophylaxis: Active Bleeding
[2017-01-09] MEDS ORDERED: LORazepam 2 MG/1 ML VIAL IV ONE (17:41)
[2017-01-09] MEDS: LORazepam 2 MG/1 ML VIAL IV PRN ×2 (17:52→22:03)
--- NOTE | 2017-01-09 17:54 | Event Note ---
Hospitalist service was notified about patient's acute mental status change on the way from the ER to the floor pain control. Signs and symptoms are consistent with acute stroke. His vital signs are stable at this time however he is not responsive to verbal stimuli. He is not moving his left side. He exhibits some nonpurposeful movements of the right arm. I have spoken to the family at the bedside who wish to "keep him comfortable." I explained that we will provide pain medicine as well as medicine for agitation, supplemental oxygen as needed. They do not want any heroic measures performed. Will consult case management for hospice. The family expressed her thanks for the discussion. AFVSS EXAM: CONSTITUTIONAL: Chronically ill-appearing, NAD HEENT: NC, AT, OP benign, SWAPNA CV: RRR no m/g/r RESP: clear B/L, no w/r/r GI: abd soft, NT, ND, +bowel sounds INTEGUMENTARY: no lesions or rash EXTREMITIES: no c/c/e NEURO: Left hemiplegia, gaze preference to the left, no meaningful responsiveness PSYCH: Unable to obtain due to current mental status
[2017-01-09] MEDS: MORPHINE 2 MG/1 ML SYRINGE IV PRN ×2 (18:35→22:19)
[2017-01-09] MEDS: SODIUM CHLORIDE 0.9% 1,000 ML IV SCH (18:54)
[2017-01-09] MEDS: ACETAMINOPHEN 650 MG SUPP RECTAL PRN (22:12)
[2017-01-10] MEDS: SODIUM CHLORIDE 0.9% 1,000 ML IV SCH ×3 (03:23→17:55)
[2017-01-10] MEDS: MORPHINE 2 MG/1 ML SYRINGE IV PRN ×9 (03:31→22:45)
[2017-01-10 05:50] LABS: Basophils % 0.1 % (0.0-0.8); Immature Granulocytes % 1.8 %; Immature Granulocytes Absolute 0.21 #; Lymphocytes # 0.2 10*3/uL (1.4-4.0); Lymphocytes % 1.8 % (21.2-54.2); Mean Corpuscular HGB Conc 33.1 GM/DL (32-36); Mean Corpuscular Hemoglobin 28 PG (27-34); Mean Corpuscular Volume 84.5 FL (87-102); Mean Platelet Volume 9.8 FL (9.6-12.0); Monocytes % 8.3 % (1.7-12.7); Neutrophils # 10.2 10*3/uL (1.4-7.4); Platelet Count 180 T/CUMM (130-400); Red Blood Count 2.07 MC/CUMM (3.8-5.5); Red Cell Distribution Width 13.7 % (9.3-17.3); White Blood Count 11.6 T/CUMM (4-12)
[2017-01-10 05:54] LABS: Hematocrit 17.5 VOL% (42.0-52.0); Hemoglobin 5.8 GM/DL (14.0-18.0)
[2017-01-10 06:12] LABS: Band Neutrophils 3 % (0-10); Hypochromasia 1+; Lymphocytes 2 % (20-55); Microcytosis Slight; Platelet Estimate Normal; Segmented Neutrophils 91 % (50-85); Total Cells Counted 100
[2017-01-10 06:23] LABS: Bilirubin,Total 0.9 MG/DL (0.2-1.0); Calcium 7.9 MG/DL (8.5-10.1); Magnesium 1.7 MG/DL (1.8-2.4); Osmolality,Calculated 285.5 MOS/KG (273-304); Potassium 3.9 MMOL/L (3.5-5.1); Total Protein 5.6 G/DL (6.4-8.3)
--- NOTE | 2017-01-10 08:05 | Oncology Progress Note ---
Oncology Subjective PN Interval history: Mr. Cowan is receiving comfort measures only. I certainly agree with this. He is unresponsive at this point. Exam - Constitutional Vitals: Period Temp Pulse Resp BP Sys/[place] Pulse Ox Last 24 Hr 98.0 F-102.7 F 84-142 16-32 80-114/50-69 93-99 Results - Labs CBC & BMP: 01/10/17 04:00 01/10/17 04:00 Quality Measures - VTE Contraindication to Pharmacological VTE Prophylaxis: Active Bleeding
[2017-01-10] MEDS: LORazepam 2 MG/1 ML VIAL IV PRN (13:57)
--- NOTE | 2017-01-10 14:34 | Hospitalist Progress Note ---
Assessment and Plan - Time spent with patient Time spent with patient: Greater than 30 minutes (1) Mental status, decreased Status: Acute Assessment and plan: Most likely to represent an acute stroke. Patient is Comfort Care we will not investigate this further. I had a long discussion with the family about this and they agreed. I anticipate the patient's has less than 24 hours left. Will hold off on any referral for home hospice for now. Current Visit: Yes (2) Anemia Status: Acute Assessment and plan: Likely due to GI loss. Current Visit: Yes Qualifiers: Anemia type: unspecified type Qualified Code(s): D64.9 - Anemia, unspecified (3) Esophageal cancer Status: Acute Assessment and plan: Stage IV Current Visit: Yes Hospitalist: Subjective Interval history: Yesterday the patient developed an acute change in mental status on his way from transfer from the ED to the floor. He was evaluated by the overnight physician who felt patient may have had a stroke. Discussion with family and it was agreed to place the patient on comfort measures. This morning he is breathing heavily and continuously. He is comatose and unable to be awakened. Mild fevers overnight. Exam - Constitutional Vitals: Period Temp Pulse Resp BP Sys/[place] Pulse Ox Last 24 Hr 98.0 F-102.7 F 85-142 16-32 87-121/52-80 93-99 General appearance: other (Comatose, heavy breathing) - Head Head exam: Present: normal inspection, normocephalic, atraumatic - ENT ENT exam: Present: normal exam - Neck Neck exam: Present: normal inspection - Respiratory Respiratory exam: Present: rhonchi. Absent: wheezes - Cardiovascular Cardiovascular exam: Present: tachycardia. Absent: gallop, rubs, systolic murmur - GI/Abdominal GI/Abdominal exam: Present: normal bowel sounds, soft. Absent: distended, firm , guarding, tenderness, rebound - Extremities Exam Extremities exam: Present: normal inspection. Absent: calf tenderness, edema Results - Labs CBC & BMP: 01/10/17 04:00 01/10/17 04:00 Lab Results: I have reviewed the past 24 hour labs Quality Measures - VTE Contraindication to Pharmacological VTE Prophylaxis: Active Bleeding
[2017-01-10] MEDS: ACETAMINOPHEN 650 MG SUPP RECTAL PRN (15:31)
[2017-01-10] MEDS: DESITIN 4OZ/NYSTATIN 15 GRAM MIXTURE PASTE TOP SCH ×2 (15:38→22:48)
[2017-01-11] MEDS: MORPHINE 2 MG/1 ML SYRINGE IV PRN (00:37)
[2017-01-11 00:42] VITALS: BP 109/73
[2017-01-11] MEDS: SODIUM CHLORIDE 0.9% 1,000 ML IV SCH (02:21)
--- NOTE | 2017-01-13 13:30 | Discharge Summary ---
Hospital Course - Hospital Course Hospital Course: Hospital course: Mr. 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 He was found to have symptomatic anemia with a hemoglobin level of 7.8 and the decision was made to admit the patient from the emergency department. Prior to arrival to the floor he developed an acute change in mental status believed to be secondary to stroke. The on-call physician discussed with the family regarding his current condition and the family opted for comfort measures only. Given his rapidly deteriorating condition social work was not consulted for hospice placement as the patient was expected to pass while hospitalized. The patient passed overnight, please see nursing records for time of . Diagnosis - Discharge Diagnosis (1) Mental status, decreased Status: Acute (2) Anemia Status: Acute (3) Esophageal cancer Status: Acute Discharge Plan - Discharge Data Disposition: Condition at Discharge: - Discharge Medications No Action HYDROcodone/ACETAMIN 10-325 [[place] 10-325] 10 mg PO Q4-6H PRN PRN Reason: Pain Promethazine Tab [Phenergan Tab] 25 mg PO Q6H PRN PRN Reason: Nausea - Follow Up or Referral - Forms/Instructions DS: Provider Date of admission: 01/09/17 14:01 Primary care physician: . No PCP Attending physician on admission: Stefania Vyas MD Consults: 01/09/17 14:58 Consult to Case Mgmt/Social Srvs [CONS] Routine Reason for Case Mgmt/Social Srvs: Discharge Planning Hospice Referral 01/09/17 15:14 Consult to Physician [CONS] Routine Comment: Dr Mtz, Esophageal cancer (known patient) Consulting Provider: Rm Fung Consulting Provider Notified: Yes When should Consulting Provider be notified: In am Consult to Specialist Group: Oncology When should Consulting Provider be notified: In am Person Notified: DR FUNG NOTIFIED OF CONSULT Date Notified: 01/10/17 01/09/17 17:15 Consult to Dietitian [CONS] Routine Reason for Dietitian: TF-Initiate/Manage 01/09/17 17:50 Consult to Dietitian [CONS] Routine Reason for Dietitian: Dietary Consult Discharging clinician: Stefania Vyas MD
== END 2017-01-11 04:10 | disposition expired | DRG 45 ==
LOC: N.ED 10:37 → N.EDINP 14:01 → N.4E 15:42
PROVIDERS: ADMIT Internal Medicine; ATTEND Internal Medicine